=== PATIENT | male | born 1955 | race Caucasian/White ===

== ENCOUNTER 2021-08-31 14:13 | Inpatient (IN) | payer OTHER, SELFPAY ==
[2021-08-31] VITALS (16 sets, daily range): BP systolic 119–167; BP diastolic 83–124; PULSE 85–133; RESP 16–98; TEMP 36.5–38.3; O2SAT 20–98; BMI 25.7; BMI 25.3
--- NOTE | 2021-08-31 14:39 | EKG12_ITS ---
Test Reason : SYNCOPE Blood Pressure : / mmHG Vent. Rate : 134 BPM Atrial Rate : 214 BPM P-R Int : 000 ms QRS Dur : 098 ms QT Int : 278 ms P-R-T Axes : 000 052 -18 degrees QTc Int : 415 ms Atrial fibrillation with premature ventricular or aberrantly conducted complexes Abnormal ECG Confirmed by TJ VELOZ, NIK ([id number]), videotape editor JM REYES ([id number]) on 09/01/2021 12:53:31 PM Referred By: BETTINA Confirmed By:NIK SPENCER MD
--- NOTE | 2021-08-31 14:40 | EDS_ITS ---
HPI History of Present Illness Chief Complaint: Syncope Informant: patient and spouse/S.O. Narrative Narrative: Patient presents after syncopal episode at home.-year-old male. He had been sitting in a 0 gravity chair for about an hour out in the heat. He got up. He states he must of fallen. He woke up on the ground. He went in to clean himself up. His encouraged him to come in. He does not recall chest pain or palpitations. He really feels at his baseline now. This patient had craniotomy back at the end of June for benign meningioma. However, he has been slowly recovering. He initially had very severe headaches but those have gotten much better. He used to take Percocet [id number] but he now just takes it at night. He has been having some dizziness and lightheaded episodes for the last week or so. He has not noted palpitations or tachycardia. However, he was also diagnosed with atrial fibrillation this May. He was initially on Xarelto but that has been held ever since his surgery. He just takes baby aspirin and 25 of metoprolol at night for this. He also admits that he really has not been eating and drinking a lot. His appetite and taste is just not really recovered well after surgery. But overall he feels he is progressing and improving. His just talked to his neurosurgeon as he came in here. She requested CT scan. Past medical history: Meningioma, prostate cancer, atrial fibrillation Medications: Percocet, metoprolol, aspirin No known drug allergies Surgery meningioma excision end of June 2021 No alcohol, lives at home with [facility] Medical History Atrial fibrillation Allergy/AdvReac Type Severity Reaction Status Date / Time No Known Allergies Allergy Verified 08/31/21 14:16 Social History Smoking Status: Never smoker ROS ROS ED Constitutional Constitutional ED: Reports weight loss and other Details: Patient has had some weight loss due to decreased p.o. intake. ; Denies chills or fever(s) Eyes Eyes: Denies blurry vision, change in vision or diplopia ENT ENT ED: Denies rhinorrhea or sore throat Cardiovascular Cardiovascular: Reports other Details: Despite being in atrial fibrillation with a rate in the 120s through 140s he does not have palpitations. ; Denies chest pain, orthopnea, palpitations or racing heartbeat Respiratory/Chest Respiratory/Chest: Denies cough, dyspnea, dyspnea on exertion, orthopnea or sputum Gastrointestinal Gastrointestinal: Denies abdominal pain, nausea or vomiting Genitourinary Genitourinary ED: Denies dysuria Musculoskeletal Musculoskeletal: Denies back pain, myalgias or neck pain Integumentary Reports other Details: Laceration top of head Neurologic Neurologic: Reports headache(s) and other Details: Patient has mild headache. But is not really different than what he has been dealing with since surgery. ; Denies paresthesias or weakness Psychiatric Psychiatric: Denies anxiety or depression Endocrine Endocrinology: Denies polydipsia or polyuria Allergic/Immunologic Allergic/Immunologic ED: Denies urticaria EXAM Physical Exam Const Vital Signs: 08/31/21 14:14 08/31/21 14:21 Temperature 97.7 F L Temperature Source Temporal Pulse Rate 85 132 H Respiratory Rate 16 20 H Respiratory Effort Normal Respiratory Pattern Normal Blood Pressure 119/83 H 167/124 H Blood Pressure Mean 95 138 Pulse Ox 97 98 Oxygen Delivery Method Room Air Room Air Patient is actually wide-awake alert appropriate and gives a good history. Positive well nourished and well developed General Appearance ED: well developed and NAD HEENT HEENT Narrative: Patient has a very small abrasion above the left eyebrow. Nothing to suture. Bleeding is controlled with a Band-Aid. There is a 3 and half centimeter laceration to the top of his scalp. It is not bleeding. There is also a fluid collection toward the occipital area more on the right that has been there ever since his surgery. There is no sign of erythema or wound infection in the area. states this is about what its been looking like ever since surgery. Eyes PERRL and EOMs intact bilaterally Neck no lymphadenopathy and supple General: Negative for tenderness Chest Wall inspection of chest normal Resp normal respiratory effort and clear to auscultation bilaterally Cardio Negative for regular rate or regular rhythm Rate: tachycardic and other Other Details: Has atrial fibrillation on the monitor and with auscultation Rhythm: abnormal rhythm GI normal to inspection, nondistended, normoactive bowel sounds and non-tender Palpation: soft Back/Spine no CVA tenderness Extremity Extremity Narrative: Very slight abrasion on the anterior portion of her right knee. No pain with motion or palpation Neuro oriented x3 and CN's II-XII intact bilaterally Sensorium / Orientation: alert; Negative for orientation impaired, lethargic or stuporous Motor Exam: strength 5/5 throughout Psych mental status grossly normal Skin Skin Narrative: See above MDM MDM EKG Initial EKG: Comments: EKG done for tachycardia read by me shows atrial fibrillation with overall rate of 134. No ventricular beats noted. No acute ST elevation or depression.. QRS duration and QTc normal. Discharge Plan Triage Chief Complaint: Syncope ED Provider: Akhil Alan Dx/Rx/DC Orders Primary Care Provider: Jeff Meyer
[2021-08-31] MEDS: 0.9% Normal Saline 1,000 ML 1000 ML IV (14:42)
[2021-08-31] MEDS: Metoprolol Tartrate 5 MG/5 ML Vial IV ×4 (14:47→22:51)
[2021-08-31 14:48] LABS: Absolute Lymphocyte Count 1.12 X10^3/uL (0.83-4.51); Absolute Neutrophil Count 10.7 X10^3/uL (2.0-7.7); Basophil# 0.04 X10^3/uL; Basophil% 0.3 % (0-1); Eosinophil# 0.02 X10^3/uL; Eosinophils% 0.2 % (0-5); Hematocrit 43.5 % (40-54); Hemoglobin 14.8 g/dL (13.0-16.5); Lymphocyte # 1.12 X10^3/ul (0.83-4.51); Lymphocyte % 8.8 % (19-41); Mean Corpuscular Volume 88.1 fL (80-94); Mean Platelet Vol. 9.5 fl (6.2-12.0); Monocyte# 0.76 X10^3/uL; NRBC Flagged by Analyzer 0 % (0-5); Neutrophil # 10.71 X10^3/uL (2.7-7.7); Neutrophil % 84.2 % (47-70); Platelet Count 231 K/mm3 (150-450); RBC Distribution Width CV 13.1 % (11.6-14.6); RBC Distribution Width SD 42.1 fl (35.1-43.9); Red Blood Count 4.94 M/mm3 (4.6-6.2); White Blood Count 12.7 K/mm3 (4.4-11.0)
--- NOTE | 2021-08-31 15:09 | CT_ITS ---
STUDY: CT BRAIN WITHOUT CONTRAST REASON FOR EXAM: Male, 66 years old. Resent surgery for tumor removal. History of trauma. RADIATION DOSAGE (If Supplied By Facility): CTDIvol = ( 44.99 ) mGy, DLP = ( 880.47 ) mGycm TECHNIQUE: Transaxial CT imaging of the brain was performed without administration of intravenous contrast material. Individualized dose optimization techniques were used for this CT. COMPARISON: No relevant priors. FINDINGS: The patient is status post right occipital craniotomy. There is evidence of a 4.7 cm x 6.3 cm fluid collection overlying the soft tissues suggestive of postoperative seroma. There is a 1.4 cm hyperdense nodule overlying the skull overlying the posterior aspect of the left occipital bone. Normal size ventricles and extra-axial spaces for the patient''s age. Normal white matter tracts of the cerebral hemispheres. Normal basal ganglia and thalami. Normal brainstem. Focal encephalomalacia in the right cerebellar hemisphere in keeping with history of recent surgery. There is no intracranial hemorrhage. There are no findings of an acute ischemic infarction. Normal visualized paranasal sinuses. CT/Brain/Head without Contrast IMPRESSION: Status post right occipital craniotomy with findings suggestive of overlying postoperative seroma. Focal area encephalomalacia in the right cerebellar hemisphere laterally in keeping with prior surgical intervention. Electronically Signed: Nino Detnon MD at 15:20 EDT ,
--- NOTE | 2021-08-31 15:11 | RAD_ITS ---
STUDY: X-RAY CHEST REASON FOR EXAM: Male, 66 years old. Trauma TECHNIQUE: Single AP portable view of the chest. COMPARISON: None. FINDINGS: EKG electrodes are seen. The lungs are clear and expanded. There is no demonstrated pleural abnormality. There is borderline cardiomegaly. Normal mediastinum and freddy. Normal visualized pulmonary arteries. Normal visualized aortic arch and descending thoracic aorta. Normal visualized thoracic spine. Normal visualized ribs, clavicles, and shoulders. There is no demonstrated abnormality of the visualized soft tissue structures of the upper abdomen. RAD/Chest 1 View (Portable) IMPRESSION: Borderline cardiomegaly. Electronically Signed: Nino Denton MD at 15:30 EDT ,
[2021-08-31 15:16] LABS: Anion Gap 8 (5-15); BUN 12 mg/dL (7-18); BUN/Creat Ratio 13.4 RATIO (10-20); Calcium,Total 9.6 mg/dL (8.5-10.1); Chloride 100 mmol/L (98-107); EST Glomerular Filtration Rate 90 mL/min (>60); Est Glom Filt Rate - Afr Amer 109 mL/min (>60); Estimated Creatinine Clearance 88.31 ml/min; Glucose 147 mg/dL (74-106); Potassium 4.3 mmol/L (3.5-5.1); Sodium Level 135 mmol/L (136-145); Troponin-I HS 10 pg/mL (3.0-78.0)
[2021-08-31] MEDS: Acetaminophen 325 MG Tablet 650 MG PO ×2 (16:43→20:10)
[2021-08-31] MEDS: Metoprolol Tartrate 25 MG Tablet PO (17:05)
[2021-08-31] MEDS: Metoprolol(XL)Succ 50 MG Tablet PO ×2 (18:18→19:50)
--- NOTE | 2021-08-31 18:22 | PCM.HP.STD ---
Documented by User: Khushi Schulz NP, [employer] MACHINE [employer]ER-C 08/31/21 18:35 HPI - General HPI Narrative BASIM CAMPUZANO, is a 66 M who presents to the emergency room due to syncope. Patient was laying in a chair outside and upon standing, passed out. He states he did not have any symptoms prior to syncope episode. He is unsure how long he lost consciousness for. He states he woke up lying on the ground and had blood on his face. He states he was able to get himself in the house to clean up his face. His got home approximately 30 minutes later and found him in the bathroom sitting down. He denies any ongoing symptoms or complaints. He states he had excision of a fairly large meningioma at the end of June and has had some dizziness upon standing since his surgery as well as headaches however these have improved. He denies chest pain, shortness of breath, palpitations. Denies fever, chills. He has chronic atrial fibrillation and is not on anticoagulation due to recent surgery. He denies other past medical history. [facility] Medical History (Updated 08/31/21 @ 18:29 by Khushi Schulz NP, [employer] MACHINE [employer]ER-C) Atrial fibrillation Benign meningioma Pre-diabetes Home Medications acetaminophen [Tylenol] 650 mg PO Q6H PRN 08/31/21 [History Last Taken 08/31/21] aspirin 81 mg PO DAILY 08/31/21 [History Last Taken 08/30/21] metoprolol tartrate 25 mg PO DAILY 08/31/21 [History Last Taken 08/30/21] oxycodone-acetaminophen [Percocet] 1 tab PO Q6H PRN 08/31/21 [History Last Taken 08/30/21] Allergy/AdvReac Type Severity Reaction Status Date / Time No Known Allergies Allergy Verified 08/31/21 14:16 Family History (Updated 08/31/21 @ 18:27 by Khushi Schulz NP, [employer] MACHINE [employer]C) Mother Diabetes Father CAD (coronary artery disease) Surgical History History of total right knee replacement Hx of prostatectomy Meningioma determined by biopsy of brain Social History (Updated 08/31/21 @ 18:29 by Khushi Schulz NP, [employer] MACHINE [employer]EDER-C) household members: spouse Smoking Status: Never smoker alcohol intake: never substance use type: does not use ROS Constitutional Constitutional: Denies change in weight, chills, fatigue, fever(s) or weakness Cardiovascular Cardiovascular: Reports syncope; Denies chest pain, edema, lightheadedness or palpitations Respiratory/Chest Respiratory/Chest: Denies cough, dyspnea, productive cough, shortness of breath at rest, shortness of breath with exertion or wheezing Gastrointestinal Gastrointestinal: Denies abdominal pain, constipation, diarrhea, nausea or vomiting Genitourinary Genitourinary: Denies burning urination, difficulty urinating, dysuria, hematuria, urinary frequency, urinary incontinence or urinary urgency Musculoskeletal Musculoskeletal: Denies back pain, joint pain or muscle weakness Integumentary Integumentary: Denies erythema, lesions, rash or wounds Neurologic Neurologic: Denies abnormal speech, confusion, dizziness, focal weakness, numbness, paresthesias, seizure-like activity or syncope Psychiatric Psychiatric: Denies anxiety or depression Hematologic/Lymphatic Hematologic/Lymphatic: Denies anemia, easy bleeding or easy bruising Allergic/Immunologic Allergic/Immunologic: Denies hives or asthma Vital Signs Vital Signs Vital Signs: 08/31/21 14:14 08/31/21 14:21 08/31/21 14:51 Temperature 97.7 F L Temperature Source Temporal Pulse Rate 85 132 H 107 H Respiratory Rate 16 20 H 16 Respiratory Effort Normal Respiratory Pattern Normal Blood Pressure 119/83 H 167/124 H 120/97 H Blood Pressure Mean 95 138 104 Pulse Ox 97 98 97 Oxygen Delivery Method Room Air Room Air Room Air 08/31/21 14:58 08/31/21 15:19 08/31/21 15:40 Temperature Temperature Source Pulse Rate 98 98 105 H Respiratory Rate 18 20 H Respiratory Effort Respiratory Pattern Blood Pressure 134/104 H 132/98 H 131/89 H Blood Pressure Mean 114 109 103 Pulse Ox 98 96 Oxygen Delivery Method Room Air Room Air 08/31/21 16:19 08/31/21 16:38 08/31/21 17:04 Temperature Temperature Source Pulse Rate 117 H 110 H 107 H Respiratory Rate 98 H 20 H 20 H Respiratory Effort Respiratory Pattern Blood Pressure 136/119 H 144/118 H 139/104 H Blood Pressure Mean 124 126 115 Pulse Ox 20 98 96 Oxygen Delivery Method Room Air Room Air 08/31/21 17:37 08/31/21 18:14 08/31/21 18:15 Temperature 99.7 F H Temperature Source Oral Pulse Rate 114 H 115 H 121 H Respiratory Rate 20 H 20 H 20 H Respiratory Effort Respiratory Pattern Blood Pressure 134/95 H 128/106 H 136/110 H Blood Pressure Mean 108 113 118 Pulse Ox 98 96 96 Oxygen Delivery Method Room Air Room Air Room Air Weight Weight: 185 lb Body Mass Index (BMI) 25.7 Physical Exam Const alert and oriented x3 Orientation / Consciousness: awake, oriented to person, oriented to place and oriented to time HEENT normocephalic and moist oral mucous membranes Eyes PERRL, EOMs intact bilaterally and conjunctivae normal Neck no lymphadenopathy Resp normal respiratory effort and clear to auscultation bilaterally Cardio Cardio Narrative: a.fib with RVR Peripheral Pulses: pulses 2+ throughout GI normal to inspection, nondistended, normoactive bowel sounds, non-tender and non-distended Extremity normal to inspection Skin no rashes or lesions noted Skin Narrative: left forehead laceration Lesions: no lesions Rashes: no rashes Trauma: no lacerations or abrasions Neuro CN's II-XII intact bilaterally, no focal motor deficits, no sensory deficits noted and deep tendon reflexes 2+ bilaterally Psych mental status grossly normal and affect normal Results Lab / Micro Data Result Diagrams: 08/31/21 14:43 08/31/21 14:43 Labs: Laboratory Results - last 24 hr 08/31/21 14:43: WBC 12.7 H, RBC 4.94, Hgb 14.8, Hct 43.5, MCV 88.1, MCH 30.0, MCHC 34.0, RDW Std Deviation 42.1, RDW Coeff of Frida 13.1, Plt Count 231, MPV 9.5, Immature Gran % (Auto) 0.500, Neut % (Auto) 84.2 H, Lymph % (Auto) 8.8 L, Loup % (Auto) 6.0, Eos % (Auto) 0.2, Baso % (Auto) 0.3, Absolute Neuts (auto) 10.7 H, Absolute Lymphs (auto) 1.12, Nucleated RBC % 0 08/31/21 14:43: Sodium 135 L, Potassium 4.3, Chloride 100, Carbon Dioxide 27.0, Anion Gap 8, BUN 12, Creatinine 0.90, Estim Creat Clear Calc 88.31, Est GFR (MDRD) Af Amer 109, Est GFR (MDRD) Non-Af 90, BUN/Creatinine Ratio 13.4, Glucose 147 H, Calcium 9.6, Troponin I High Sens [address] 08/31/21 15:09 IMPRESSION: Status post right occipital craniotomy with findings suggestive of overlying postoperative seroma. Focal area encephalomalacia in the right cerebellar hemisphere laterally in keeping with prior surgical intervention. Electronically Signed: Nino Denton MD at 15:20 EDT , Chest X-Ray 08/31/21 15:11 IMPRESSION: Borderline cardiomegaly. Electronically Signed: Nino Denton MD at 15:30 EDT , Assessment & Plan Assessment/Plan (1) Atrial fibrillation with RVR: PLAN: 1. Uncontrolled a.fib-not on anticoagulation due to recent brain hemangioma excision. Increase metoprolol succinate to 50 mg daily. Monitor telemetry. Patient's primary burglar alarm installer recommended overnight observation. 2. Syncope-brain CT with stable postoperative changes. Possibly related to #1. Check orthostatic vitals. Troponin negative. 3. Benign brain hemangioma excision June 2021-continue outpatient follow-up. 4. History of prostate cancer-reports ongoing elevated PSA. Continue outpatient surveillance. DVT prophylaxis- not indicated. This patient was seen by CHACHA Cox under the supervision of Dr. Curtis. Time spent examining patient, reviewing data and subsequent management of care: 18 minutes Documented by User: Dr. Daryl Curtis DO 08/31/21 19:02 HPI - General General Date of Admission: 08/31/21 [facility] Medical History (Updated 08/31/21 @ 18:29 by Khushi Scuhlz NP, [employer] MACHINE [employer]ER-C) Atrial fibrillation Benign meningioma Pre-diabetes Home Medications acetaminophen [Tylenol] 650 mg PO Q6H PRN 08/31/21 [History Last Taken 08/31/21] aspirin 81 mg PO DAILY 08/31/21 [History Last Taken 08/30/21] metoprolol tartrate 25 mg PO DAILY 08/31/21 [History Last Taken 08/30/21] oxycodone-acetaminophen [Percocet] 1 tab PO Q6H PRN 08/31/21 [History Last Taken 08/30/21] Allergy/AdvReac Type Severity Reaction Status Date / Time No Known Allergies Allergy Verified 08/31/21 14:16 Family History (Updated 08/31/21 @ 18:27 by Khushi Schulz NP, FISH MACHINE FEEDER-C) Mother Diabetes Father CAD (coronary artery disease) Surgical History History of total right knee replacement Hx of prostatectomy Meningioma determined by biopsy of brain Social History (Updated 08/31/21 @ 18:29 by Khushi Schulz NP, FISH MACHINE FEEDER-C) household members: spouse Smoking Status: Never smoker alcohol intake: never substance use type: does not use Results Lab / Micro Data Result Diagrams: 08/31/21 14:43 08/31/21 14:43 Charges/Coding Addendum Addendum: She was seen and examined today independently of Khushi Schulz, he came to the ER today at [facility] after sustaining a syncopal episode at home and hitting the back of his head. Patient states he was standing up from a seated position, he had been outside this afternoon in the heat and the next thing he knew he was on the ground. Patient was able to get himself up to go into his house, he tried to wipe the blood off in the bathroom but became lightheaded again and sat down on the bathroom floor. Patient has had a history of atrial fibrillation since May of this year, coincidentally while he underwent a work-up for an elevated PSA, he was noted to have a meningioma which was then removed in June of this year. Patient has been on rate control medication for his atrial for but he has not been on any anticoagulation except for an 81 mg baby aspirin which she takes daily-I questioned him about this and he stated that he has been taking this for quite some time and the neurosurgeon elected to keep him on this baby aspirin. Work-up in the emergency room included a CT of the brain which showed right occipital changes indicating a postoperative seroma, there is an area of focal encephalomalacia secondary to his known brain surgery recently. Patient was noted to have atrial fib with rapid ventricular response in the emergency room today, he was given 2 doses of IV metoprolol with some decrease in his heart rate. His burglar alarm installer was contacted and requested that the patient be placed in observation status overnight here to monitor his heart rate and adjust his rate limiting medication, patient did not want to go to [facility] and so the hospitalist service was called for admission. On examination he appeared in good health and spirits. Vital signs as documented. Skin warm and dry and without overt rashes, there was a well approximated laceration to the left occipital area with some mild edema in the area noted. Neck without JVD, neck was supple, trachea midline, thyroid was normal. Lungs clear bilaterally, normal air movement was noted. Heart exam notable for irregular rhythm, normal sounds and absence of murmurs, rubs or gallops. Abdomen unremarkable and without evidence of organomegaly, masses, or abdominal aortic enlargement. Bowel sounds are present, abdomen is not distended. Extremities nonedematous, no cyanosis was noted, no clubbing was noted. Neuro: Cranial nerves II through XII are grossly intact, no focal motor deficits were noted, sensation to light touch and pinprick intact, motor exam 5/5 throughout. Psych: Patient is alert and oriented x3, he does not appear anxious or depressed, he does not appear agitated. Labs obtained showed a slightly elevated white blood cell count at 12.7, patient's sodium was 135 and glucose was 147. Impression: #1 syncope-probably vasovagal in nature, patient will be placed in observation status on PCU, he will be monitored on telemetry, rate limiting medications will be given, patient's metoprolol succinate will be increased to 50 mg daily for rate control. I do not believe the patient needs any further studies such as an echocardiogram or repeat EKGs or cardiac enzyme monitoring. #2 permanent atrial fibrillation-uncontrolled at this time, again patient will be placed in observation status on PCU and rate limiting medications will be given to the patient, he may need further titration of his metoprolol succinate. #3 brain seroma secondary to recent meningioma removal-patient states that he follows up with his neurosurgeon and he has a seroma which is going to be observed at this time to see if it resolves without further surgery. #4 occipital laceration due to fall-there is no signs of any bleeding or severe ecchymosis in the area #5 history of prostate cancer-patient follows up with outpatient urology Again I have elected to take the patient off 81 mg aspirin which he takes daily-I explained this to him and he was in agreement with stopping the aspirin. I have reviewed Khushi Schulz's history and physical including her medical assessment and plan of care and endorse it with the above additions. Total clinical time spent by myself addressing the patient's medical issues, reviewing the patient's medical record, and collaborating with the patient's caregivers: 52 minutes. Visit Charges OBSV E&M: [id number] Initial observation care L3
[2021-08-31] MEDS: Ondansetron 4 MG/2 ML Vial IV (18:26)
[2021-08-31] MEDS: oxyCODONE 5 MG Tablet PO (20:10)
--- NOTE | 2021-08-31 22:30 | PCM.HOSP.N ---
Hospitalist Note Notified by Keiry BLACK that patient was continuing to have heart rates in the 110 to 120s despite receiving dose of metoprolol succinate 50 mg p.o. Metoprolol 5 mg IV every 6 hours as needed ordered. Discussed with Dr. Abrams who was agreeable to plan of care.
[2021-08-31] MEDS: Calcium Carbonate 500 MG Tablet 1000 MG PO (22:47)
[2021-08-31] MEDS: 0.9% Saline Lock 10 ML Syringe IV (23:00)
[2021-09-01] VITALS (17 sets, daily range): BP systolic 117–146; BP diastolic 53–106; PULSE 56–115; RESP 16–18; TEMP 36–37.2; O2SAT 91–97
[2021-09-01] MEDS: oxyCODONE 5 MG Tablet PO ×3 (00:20→09:48)
[2021-09-01] MEDS: Acetaminophen 325 MG Tablet 650 MG PO ×2 (02:22→09:48)
[2021-09-01 08:11] LABS: AST(SGOT) 15 U/L (15-37); Alanine Aminotransfer ALT/SGPT 30 U/L (16-61); Albumin, Serum 3.1 g/dL (3.2-5.0); Alkaline Phosphatase 47 U/L (45-117); Anion Gap 8 (5-15); BUN 9 mg/dL (7-18); BUN/Creat Ratio 12.8 RATIO (10-20); Calcium,Total 8.8 mg/dL (8.5-10.1); Chloride 99 mmol/L (98-107); EST Glomerular Filtration Rate 120 mL/min (>60); Est Glom Filt Rate - Afr Amer 146 mL/min (>60); Estimated Creatinine Clearance 113.55 ml/min; Glucose 136 mg/dL (74-106); Potassium 4.3 mmol/L (3.5-5.1); Protein, Total 6.1 g/dL (6.4-8.2); Sodium Level 132 mmol/L (136-145)
[2021-09-01 08:17] LABS: Absolute Lymphocyte Count 1.52 X10^3/uL (0.83-4.51); Absolute Neutrophil Count 9.4 X10^3/uL (2.0-7.7); Basophil# 0.02 X10^3/uL; Basophil% 0.2 % (0-1); Eosinophil# 0.01 X10^3/uL; Eosinophils% 0.1 % (0-5); Hematocrit 38.1 % (40-54); Hemoglobin 13.2 g/dL (13.0-16.5); Lymphocyte # 1.52 X10^3/ul (0.83-4.51); Lymphocyte % 12.6 % (19-41); Mean Corp Hgb Conc 34.6 g/dL (32-36); Mean Corpuscular Hgb 30.1 pg (27.0-32.0); Mean Platelet Vol. 9.7 fl (6.2-12.0); Monocyte# 1.05 X10^3/uL; Monocyte% 8.7 % (0-10); NRBC Flagged by Analyzer 0 % (0-5); Neutrophil # 9.44 X10^3/uL (2.7-7.7); Neutrophil % 77.9 % (47-70); Platelet Count 238 K/mm3 (150-450); RBC Distribution Width CV 13.1 % (11.6-14.6); RBC Distribution Width SD 41.5 fl (35.1-43.9); Red Blood Count 4.38 M/mm3 (4.6-6.2); White Blood Count 12.1 K/mm3 (4.4-11.0)
[2021-09-01] MEDS: Metoprolol(XL)Succ 50 MG Tablet PO (09:01)
[2021-09-01] MEDS: Ondansetron 4 MG/2 ML Vial IV (09:01)
[2021-09-01] MEDS: 0.9% Saline Lock 10 ML Syringe IV ×2 (09:01→13:39)
[2021-09-01] MEDS: 0.9% Normal Saline 1,000 ML 500 ML IV (09:50)
[2021-09-01 09:51] LABS: Hemoglobin A1c 6.1 % (3.8-5.6)
[2021-09-01 09:57] LABS: Mucous, Urine 0 SEEN /hpf (<or=2+); Red Blood Cells-Urine 0 SEEN /hpf (0-5); Squamous Epithelial Cells - UA 0 SEEN /hpf (0-5); White Blood Cells 0 SEEN /hpf (0-5)
[2021-09-01 10:03] LABS: Color, Urine Yellow (Yellow); Glucose, Dipstick Normal (Normal); Ketone-Dipstick Negative (Negative); Leukocyte Esterase-Dipstick Negative /ul (Negative); Nitrite-Dipstick Negative (Negative); Occult Blood-Urine Negative /ul (Negative); Protein-Dipstick Negative (Negative); Urine Bilirubin Dipstick Negative (Negative); Urine Urobilinogen Normal (Normal)
[2021-09-01 10:14] LABS: Bacteria 1+ /hpf (None Seen); Urine Clarity Clear (Clear)
--- NOTE | 2021-09-01 11:02 | CT_ITS ---
STUDY: CTA CHEST REASON FOR EXAM: Male, 66 years old. Syncope, r/o PE RADIATION DOSAGE (If Supplied By Facility): CTDIvol = ( 25.48 ) mGy, DLP = ( 471.62 ) mGycm TECHNIQUE: The examination was performed with the intravenous administration of IV 100mL [id number]-[id number]. Post-processing of the angiographic images was performed, with multiplanar reformation and 3D reconstruction. Individualized dose optimization techniques were used for this CT. COMPARISON: Comparison is made with prior chest radiograph dated 08/31/2021. FINDINGS: No pulmonary emboli are seen. Normal thoracic aorta and visualized great vessels. There is no demonstrated aortic dissection. Mild coronary artery calcification. Normal mediastinum. Normal hilar regions. Normal visualized trachea and bronchi. The lungs are well expanded. Minimal increased markings at the right lung base suggestive of linear atelectasis. Normal pleura. Normal chest wall structures. There are degenerative changes of thoracic spine. There is fluid distention of the esophagus. CT/CTA Chest W/WO Contrast IMPRESSION: No evidence of pulmonary emboli. Findings suggest mild linear atelectasis at the right lung base. Electronically Signed: Nino Denton MD at 12:11 EDT ,
--- NOTE | 2021-09-01 11:02 | MRI_ITS ---
EXAM: MR HEAD WITHOUT AND WITH INTRAVENOUS CONTRAST CLINICAL INDICATION: syncope, recent brain surgery TECHNIQUE: Multiplanar and multisequence MR images of the brain were obtained without and with intravenous contrast. This report was created using [employer] technology. CONTRAST: IV 16ML DOTAREM COMPARISON: ct 08.31.21 FINDINGS: BRAIN AND EXTRA-AXIAL SPACES: Chronic involutional changes of the brain. Focal area encephalomalacia in the right cerebellar hemisphere is stable since the recent ct scan. No intra- or extra-axial hemorrhage. No evidence of acute infarct. No intracranial mass or mass effect. There is preservation of the prieto/white matter interface. Ventricles are appropriate for age. No hydrocephalus. Basal cisterns are patent. SELLA: Unremarkable. Normal sella turcica, pituitary gland, infundibular stalk, optic chiasm and hypothalamus. AUDITORY SYSTEM: Unremarkable. The internal auditory canals are patent. BONES/JOINTS: Status post right occipital craniotomy with metal plate in place causing artifact. There is a fluid collection below the craniotomy site in the soft tissue suggestive of overlying postoperative seroma measuring 64 x 37 x 63mm. There are no air locules to suggest an abscess. However, this is not entirely excluded given the time frame of the surgery. No discrete lytic or blastic abnormalities. SINUSES: Unremarkable as visualized. Clear. MASTOID AIR CELLS: Unremarkable as visualized. Clear. ORBITS: Unremarkable as visualized. Both globes, extraocular muscles, optic nerves and retrobulbar fat appear unremarkable. VASCULATURE: Unremarkable as visualized. Normal flow voids in the major intracranial circulation. MRI/Brain W/WO Contrast IMPRESSION: 1. Status post right occipital craniotomy with metal plate in place causing artifact. There is a fluid collection below the craniotomy site in the soft tissue suggestive of overlying postoperative seroma measuring 64 x 37 x 63mm. There are no air locules to suggest an abscess. However, this is not entirely excluded given the time frame of the surgery. 2. Chronic involutional changes of the brain. Electronically Signed: Jeronimo Elliott MD at 15:55 EDT ,
--- NOTE | 2021-09-01 11:05 | PCM.PN.HOSP ---
Documented by User: Khushi Schulz NP, PROTECTIVE OFFICER-C 09/01/21 11:23 Subjective Subjective Patient seen and examined. Episode of emesis this morning. Denies further fever, chills during admission. Does state he had a brief episode of intermittent fever, chills over the past week. Denies recent illness including cough, URI symptoms, urinary symptoms. Objective Data Objective Data Vital Signs: Vital Signs Temp Pulse Resp BP Pulse Ox 97.1 F L 91 18 146/106 H 96 09/01/21 08:51 09/01/21 10:25 09/01/21 08:51 09/01/21 10:25 09/01/21 08:51 Oxygen Delivery Method Room Air Weight: 181 lb 14.102 oz Body Mass Index (BMI) 25.3 Intake & Output: Intake and Output for Last 24 Hours 08/30/21 08/31/21 09/01/21 23:59 23:59 23:59 Intake Total 1000 / 1000 Output Total 700 / 700 Balance 1000 / 750 -700 / -700 Lab / Micro Data Result Diagrams: 09/01/21 07:35 09/01/21 07:35 Labs: Laboratory Results - last 24 hr 08/31/21 14:43: WBC 12.7 H, RBC 4.94, Hgb 14.8, Hct 43.5, MCV 88.1, MCH 30.0, MCHC 34.0, RDW Std Deviation 42.1, RDW Coeff of Frida 13.1, Plt Count 231, MPV 9.5, Immature Gran % (Auto) 0.500, Neut % (Auto) 84.2 H, Lymph % (Auto) 8.8 L, [place] % (Auto) 6.0, Eos % (Auto) 0.2, Baso % (Auto) 0.3, Absolute Neuts (auto) 10.7 H, Absolute Lymphs (auto) 1.12, Nucleated RBC % 0 08/31/21 14:43: Sodium 135 L, Potassium 4.3, Chloride 100, Carbon Dioxide 27.0, Anion Gap 8, BUN 12, Creatinine 0.90, Estim Creat Clear Calc 88.31, Est GFR (MDRD) Af Amer 109, Est GFR (MDRD) Non-Af 90, BUN/Creatinine Ratio 13.4, Glucose 147 H, Calcium 9.6, Troponin I High Sens 10 09/01/21 07:35: WBC 12.1 H, RBC 4.38 L, Hgb 13.2, Hct 38.1 L, MCV 87.0, MCH 30.1, MCHC 34.6, RDW Std Deviation 41.5, RDW Coeff of Frida 13.1, Plt Count 238, MPV 9.7, Immature Gran % (Auto) 0.500, Neut % (Auto) 77.9 H, Lymph % (Auto) 12.6 L, [place] % (Auto) 8.7, Eos % (Auto) 0.1, Baso % (Auto) 0.2, Absolute Neuts (auto) 9.4 H, Absolute Lymphs (auto) 1.52, Nucleated RBC % 0 09/01/21 07:35: Sodium 132 L, Potassium 4.3, Chloride 99, Carbon Dioxide 25.0, Anion Gap 8, BUN 9, Creatinine 0.70, Estim Creat Clear Calc 113.55, Est GFR (MDRD) Af Amer 146, Est GFR (MDRD) Non-Af 120, BUN/Creatinine Ratio 12.8, Glucose 136 H, Calcium 8.8, Total Bilirubin 0.80, AST 15, ALT 30, Alkaline Phosphatase 47, Total Protein 6.1 L, Albumin 3.1 L, Globulin 3.0, Albumin/Globulin Ratio 1.0 09/01/21 07:35: Hemoglobin A1c 6.1 H 09/01/21 09:50: Urine Color Yellow, Urine Clarity Clear, Urine pH 6.0, Ur Specific [place] 1.020, Urine Protein Negative, Urine Glucose (UA) Normal, Urine Ketones Negative, Urine Occult Blood Negative, Urine Nitrite Negative, Urine Bilirubin Negative, Urine Urobilinogen Normal, Ur Leukocyte Esterase Negative, Urine RBC 0 SEEN, Urine WBC 0 SEEN, Ur Squamous Epith Cells 0 SEEN, Urine Bacteria 1+, Urine Mucus 0 SEEN Radiography Diagnostic Testing: Radiology Impression Brain CT 08/31/21 15:09 IMPRESSION: Status post right occipital craniotomy with findings suggestive of overlying postoperative seroma. Focal area encephalomalacia in the right cerebellar hemisphere laterally in keeping with prior surgical intervention. Electronically Signed: Nino Denton MD at 15:20 EDT , Chest X-Ray 08/31/21 15:11 IMPRESSION: Borderline cardiomegaly. Electronically Signed: Nino Denton MD at 15:30 EDT , Physical Exam Const alert, oriented x3 and no apparent distress Orientation / Consciousness: awake, oriented to person, oriented to place and oriented to time HEENT normocephalic and moist oral mucous membranes Eyes PERRL, EOMs intact bilaterally and conjunctivae normal Neck no lymphadenopathy Resp normal respiratory effort and clear to auscultation bilaterally Cardio no murmurs Cardio Narrative: A. fib, mildly tachycardic Peripheral Pulses: pulses 2+ throughout GI normal to inspection, nondistended, normoactive bowel sounds, non-tender and non-distended Extremity normal to inspection Skin no rashes or lesions noted Lesions: no lesions Rashes: no rashes Trauma: no lacerations or abrasions Neuro CN's II-XII intact bilaterally, no focal motor deficits, no sensory deficits noted and deep tendon reflexes 2+ bilaterally Psych mental status grossly normal and affect normal Assessment & Plan Assessment/Plan (1) Syncope: PLAN: 1. Sycope-unclear etiology. Low-grade fever/leukocytosis with episode of emesis. Will begin 1 L IV fluids. Blood cultures obtained. Obtain UA. Chest x-ray unremarkable. With recent neurosurgery, obtain MRI of brain. Check orthostatic vitals. 2. Uncontrolled a.fib-not on anticoagulation due to recent brain hemangioma excision. Increase metoprolol succinate to 75 mg daily, previously on 25 mg. Remains mildly tachycardic on 50 mg. Monitor telemetry. Patient's primary drawer liner recommended overnight observation. 3. Benign brain hemangioma excision June 2021-continue outpatient follow-up. 4. History of prostate cancer-reports ongoing elevated PSA. Continue outpatient surveillance. 5. Prediabetes-hemoglobin A1c 6.1%. Recommend dietary modifications and further outpatient follow-up. DVT prophylaxis- SCDs This patient was seen by CHACHA Cox under the supervision of Dr. Bender. Documented by User: Dr. Mary Ellen Bender DO 09/01/21 15:02 Subjective Subjective This patient was seen in conjunction with Khushi Schulz NP. The following represents my independent history and physical examination. Please see below for addendum the above. Patient had a T-max overnight of 100.9 but has been otherwise afebrile. White count remains slightly elevated. Patient had one episode of emesis in the emergency department and then he did have another emesis this morning. P.o. intake has been poor. Per his report he did well after surgery initially for about 5 weeks but then has been declining somewhat since that point time. He has been in close contact with his neurosurgeon who he pleased with and she has been very receptive to his issues. His headaches had improved but his headache has increased since he hit his head yesterday. He indicates he has been having some dizziness and when pinpointed it sounds like this is more lightheadedness and unstable gait since the surgery. He denies any nelsy vertigo. Objective Data Lab / Micro Data Result Diagrams: 09/01/21 07:35 09/01/21 07:35 Physical Exam Const alert, oriented x3 and no apparent distress Constitutional Narrative: Upper middle-aged white male lying in bed but inclined to the bed upon my arrival, appears as if he is not feeling well but nontoxic Exam Limitations: no limitations HEENT moist oral mucous membranes HEENT Narrative: Laceration above the left eye with ecchymosis surrounding the area mild tenderness, fluctuant large softball size area in the posterior aspect of the right occipital area of the cranium-no erythema or tenderness and no drainage from his incision sites, Mallampati 2, no thrush, dentition is good Head and Scalp: normocephalic Eyes PERRL, EOMs intact bilaterally and conjunctivae normal Eyes Narrative: No scleral icterus Neck no lymphadenopathy, supple and no JVD Neck Narrative: Trachea midline, no thyroid enlargement Resp normal respiratory effort, no retractions, no use of accessory muscles and clear to auscultation bilaterally Auscultation: Negative for crackles, rales, rhonchi or wheezes Cardio regular rate, regular rhythm, S1 normal heart sound, S2 normal heart sound, no murmurs, no rub, no gallops, no clicks and no JVD GI normal to inspection, nondistended, normoactive bowel sounds, soft to palpation, non-tender and non-distended; Negative for hepatosplenomegaly Extremity no clubbing, cyanosis or edema Peripheral Pulses: Yes pulses 2+ throughout Skin no rashes or lesions noted, No no wounds, skin turgor normal, no jaundice, no petechiae and no mottling Skin Narrative: Wounds as noted above Neuro oriented x3, CN's II-XII intact bilaterally, moves all extremities, no focal motor deficits and no sensory deficits noted Sensorium / Orientation: awake and alert Speech: speech normal Motor Exam: strength 5/5 throughout Psych Psych Narrative: Affect is flattened mood seems to be somewhat depressed Assessment & Plan Assessment/Plan (1) Syncope: (2) Atrial fibrillation with RVR: (3) Leukocytosis: (4) Fever: (5) Nausea & vomiting: (6) Lightheadedness: (7) Hyponatremia: PLAN: Assessment: Syncope Fever Leukocytosis Nausea and vomiting Lightheadedness Hyponatremia A. fib with RVR Right sided brain meningioma-recent excision History of prostate cancer Insulin resistance with hemoglobin A1c of 6.1 Plan: -Patient still mildly tachycardic with A. fib and RVR on the 50 mg that we initiated -increase to 75 mg -Fever overnight with T-max 100.9 -Check UA -Check blood cultures -Chest x-ray without sign of infection -Check CTA of chest with syncope -Check MRI of brain-fluid collection noted on CT scan and with fever and white count elevation I think we need to better delineate that there is no cerebral infection with recent surgery -Depending on results of above could consider echocardiogram with ongoing A. fib -Check TSH in a.m. -Continue carb controlled diet -Antiemetics--> encouraged broth and Jell-O with clear liquids and advance as tolerated -We will hold on empiric antibiotics at this time Charges/Coding Visit Charges Inpatient E&M: 90477 [facility] Hosp L3
[2021-09-01] MEDS: Calcium Carbonate 500 MG Tablet 1000 MG PO (13:31)
[2021-09-01] MEDS: LORazepam 2 MG/ML Syringe 1 MG IV (13:39)
[2021-09-01] MEDS: Metoprolol(XL)Succ 25 MG Tablet PO (13:39)
[2021-09-02] VITALS (11 sets, daily range): BP systolic 135–147; BP diastolic 90–106; PULSE 81–104; RESP 14–18; TEMP 36.7–37.5; O2SAT 94–99
[2021-09-02] MEDS: Ondansetron 4 MG/2 ML Vial IV (03:18)
[2021-09-02] MEDS: Acetaminophen 325 MG Tablet 650 MG PO ×2 (03:19→16:57)
[2021-09-02] MEDS: oxyCODONE 5 MG Tablet PO ×2 (03:19→15:34)
[2021-09-02] MEDS: 0.9% Saline Lock 10 ML Syringe IV (03:19)
[2021-09-02 03:30] LABS: Bedside Glucose 122 mg/dL (74-106)
[2021-09-02 05:51] LABS: Absolute Lymphocyte Count 1.18 X10^3/uL (0.83-4.51); Absolute Neutrophil Count 8.8 X10^3/uL (2.0-7.7); Basophil# 0.03 X10^3/uL; Basophil% 0.3 % (0-1); Eosinophil# 0.01 X10^3/uL; Eosinophils% 0.1 % (0-5); Hematocrit 36.7 % (40-54); Lymphocyte # 1.18 X10^3/ul (0.83-4.51); Lymphocyte % 10.8 % (19-41); Mean Corp Hgb Conc 35.4 g/dL (32-36); Mean Corpuscular Hgb 30.1 pg (27.0-32.0); Monocyte# 0.86 X10^3/uL; Monocyte% 7.8 % (0-10); NRBC Flagged by Analyzer 0 % (0-5); Neutrophil # 8.83 X10^3/uL (2.7-7.7); Neutrophil % 80.5 % (47-70); Platelet Count 231 K/mm3 (150-450); RBC Distribution Width CV 12.8 % (11.6-14.6); RBC Distribution Width SD 38.9 fl (35.1-43.9); Red Blood Count 4.32 M/mm3 (4.6-6.2)
[2021-09-02 06:31] LABS: Anion Gap 7 (5-15); BUN 9 mg/dL (7-18); BUN/Creat Ratio 14.8 RATIO (10-20); Calcium,Total 8.6 mg/dL (8.5-10.1); Chloride 95 mmol/L (98-107); Creatinine, Serum 0.61 mg/dL (0.70-1.30); EST Glomerular Filtration Rate 142 mL/min (>60); Est Glom Filt Rate - Afr Amer 172 mL/min (>60); Glucose 134 mg/dL (74-106); Sodium Level 126 mmol/L (136-145)
--- NOTE | 2021-09-02 07:17 | NM_ITS ---
Gastric emptying study INDICATION: Nausea. TECHNIQUE: After the administration of 1.2 mCi of technetium 99m sulfur colloid in the medial orally, multiple sonographic images of the abdomen were obtained. FINDINGS: Normal uptake is seen within the stomach with passage through the duodenum into the small bowel. Next After 1 hour, there is 96% gastric retention which is elevated. T1 half is calculated to be 412 minutes which is markedly prolonged. NM/Gastric Emptying Study IMPRESSION: Delayed gastric emptying. Electronically Signed: David Adam MD at 11:35 EDT ,
[2021-09-02 08:12] LABS: Urine Sodium 125 mmol/L (Not Establ.)
[2021-09-02] MEDS: Metoprolol(XL)Succ 50 MG Tablet 75 MG PO (10:45)
--- NOTE | 2021-09-02 10:55 | CASEMGMT ---
SOFIA MERCEDES assessment: Face to Face with patient for initial transition planning/care coordination assessment. SOFIA MERCEDES introduced self and role at [facility], pt voices understanding and consents to assessment. Pt is sitting up in bed in no distress on room air. Pt is A/Ox4 and answers all questions appropriately. Care providers, pharmacy, and demographics verified/updated. Presentation: Pt c/o syncopal episode after getting up from chair-fall on patio w/ lacerations to top of head/above left eye-brain tumor removed about 40 days ago, having worsening episodes of dizziness Admitting dx: Afib, syncope PCP: Betsy Specialists: Gabbi neuro surgeon at [facility]; Merle cardio at [facility]; María, onc; Jose uro at [facility] Preferred [facility]: [facility] Insurance: [facility] Prescription Benefit: [facility] Living Will/HPOA: Pt has LW/HPOA and is aware that they are not on file at [facility]. Pt's , Georgia Emerson, is HPOA. LNOK: Georgia Emerson, /HPOA Living Arrangements: Pt lives with in 2 story home and states no concerns at home. Pt is independent with ADL's. Transportation: Pt drives self or drives and states no transportation concerns. DME/HHC: Pt has no current DME or need for any DME. Pt statesno hx of HHC or SNF in past. Pt states has OP therapy after excision of brain hemangioma end of June 2021. Pt states no concerns with going home at time of discharge. Pt is retired. Pt states does not smoke cigarettes but does occasionally drink ETOH. Pt voices no further concerns/needs. CM to follow for any further discharge planning/needs. Advised pt to ask for CM if any further questions/concerns/needs arise, voices understanding. Pt Goal: Home Plan[place] SOFIA MERCEDES
[2021-09-02 10:57] LABS: Osmolality, Urine 624 mOsm/KG
[2021-09-02 10:57] LABS: Osmolality, Serum 262 mOsm/KG (280-301)
[2021-09-02] MEDS: Lactated Ringers 1,000 ML 100 ML IV (12:41)
[2021-09-02] MEDS: Metoclopramide 10 MG/2 ML Vial 5 MG IV ×2 (12:41→18:01)
--- NOTE | 2021-09-02 12:47 | CT_ITS ---
STUDY: CT ABDOMEN AND PELVIS WITHOUT CONTRAST REASON FOR EXAM: Male, 66 years old. distenstion -- oral contrast only RADIATION DOSAGE (If Supplied By Facility): CTDIvol = ( 7.88 ) mGy, DLP = ( 421.20 ) mGycm TECHNIQUE: Transaxial images were obtained from the dome of the diaphragm to the symphysis pubis with oral contrast, and without intravenous contrast. Sagittal and coronal images were reconstructed. Individualized dose optimization techniques were used for this CT. COMPARISON: None. FINDINGS: The visualized lung bases are unremarkable. Moderate pericardial effusion. Normal liver. Normal gallbladder and extrahepatic biliary system. Normal spleen. Normal pancreas. Normal bilateral adrenal glands. Normal right kidney. Normal left kidney. Normal visualized stomach. Normal small intestine. Normal colon. The appendix is visualized and appears normal. Normal abdominal aorta. Normal inferior vena cava. Normal retroperitoneum. Normal urinary bladder. Normal abdominal wall. Mild dextro scoliosis of the lumbar spine with degenerative disc disease. CT/Abdomen/Pel W ORAL Cont Only IMPRESSION: Normal unenhanced CT of the abdomen and pelvis. Moderate pericardial effusion. Electronically Signed: David Adam MD at 16:40 EDT ,
--- NOTE | 2021-09-02 14:18 | PN.HOSP_ITS ---
Subjective Subjective Patient with another emesis yesterday afternoon however no further emesis since then. Continues to complain of lightheadedness on a fairly consistent basis. P.o. intake has been poor as he has been nauseated and overall not hungry. I did discuss with him the results of his gastric emptying study which showed mar kedly delayed gastric emptying and the CAT scan that I ordered for his abdomen pelvis as well as a GI consult. Objective Data Objective Data Vital Signs: Vital Signs Temp Pulse Resp BP Pulse Ox 98.1 F 97 14 135/96 H 99 09/02/21 08:32 09/02/21 11:01 09/02/21 08:32 09/02/21 10:45 09/02/21 08:32 Oxygen Delivery Method Room Air Weight: 82.5 kg Body Mass Index (BMI) 25.3 Intake & Output: Intake and Output for Last 24 Hours 08/31/21 09/01/21 09/02/21 23:59 23:59 23:59 Intake Total 1000 / 1000 1000 / 1000 940 / 940 Output Total 900 / 900 Balance 1000 / 750 100 / 100 940 / 940 Lab / Micro Data Result Diagrams: 09/02/21 05:12 09/02/21 05:12 Labs: Laboratory Results - last 24 hr 09/02/21 03:25: POC Glucose 122 H 09/02/21 05:12: WBC 11.0, RBC 4.32 L, Hgb 13.0, Hct 36.7 L, MCV 85.0, MCH 30.1, MCHC 35.4, RDW Std Deviation 38.9, RDW Coeff of Frida 12.8, Plt Count 231, MPV 10.0, Immature Gran % (Auto) 0.500, Neut % (Auto) 80.5 H, Lymph % (Auto) 10.8 L, [place] % (Auto) 7.8, Eos % (Auto) 0.1, Baso % (Auto) 0.3, Absolute Neuts (auto) 8.8 H, Absolute Lymphs (auto) 1.18, Nucleated RBC % 0 09/02/21 05:12: Sodium 126 L, Potassium 4.0, Chloride 95 L, Carbon Dioxide 24.0, Anion Gap 7, BUN 9, Creatinine 0.61 L, Estim Creat Clear Calc 130.30, Est GFR (MDRD) Af Amer 172, Est GFR (MDRD) Non-Af 142, BUN/Creatinine Ratio 14.8, Glucose 134 H, Calcium 8.6 09/02/21 07:44: Urine Osmolality 624, Ur Random Sodium 125 09/02/21 10:28: Serum Osmolality 262 L Radiography Diagnostic Testing: Radiology Impression Brain MRI 09/01/21 11:02 IMPRESSION: 1. Status post right occipital craniotomy with metal plate in place causing artifact. There is a fluid collection below the craniotomy site in the soft tissue suggestive of overlying postoperative seroma measuring 64 x 37 x 63mm. There are no air locules to suggest an abscess. However, this is not entirely excluded given the time frame of the surgery. 2. Chronic involutional changes of the brain. Electronically Signed: Jeronimo Elliott MD at 15:55 EDT , Gastric Emptying Nuclear Medicine 09/02/21 07:17 IMPRESSION: Delayed gastric emptying. Electronically Signed: David Adam MD at 11:35 EDT , Physical Exam Const alert, oriented x3 and no apparent distress Constitutional Narrative: Upper middle-aged white male sitting up in bed, appears nontoxic but it appears as if he does not feel well Orientation / Consciousness: awake, oriented to person, oriented to place and oriented to time Exam Limitations: no limitations HEENT normocephalic and moist oral mucous membranes HEENT Narrative: Ecchymosis above his left eye with worsening of the bruising since admission, fluctuant fluid-filled area in his posterior right occipital area that is not erythematous or tender Head and Scalp: normocephalic Eyes PERRL and EOMs intact bilaterally Resp normal respiratory effort, no retractions, no use of accessory muscles and clear to auscultation bilaterally Auscultation: Negative for crackles, rales, rhonchi or wheezes Cardio regular rate, regular rhythm, S1 normal heart sound, S2 normal heart sound, no murmurs, no rub, no gallops, no clicks and no JVD Cardio Narrative: A. fib, mildly tachycardic Peripheral Pulses: pulses 2+ throughout GI normal to inspection, nondistended, normoactive bowel sounds, soft to palpation, non-tender and non-distended; Negative for hepatosplenomegaly Extremity normal to inspection and no clubbing, cyanosis or edema Peripheral Pulses: Yes pulses 2+ throughout Skin Skin Narrative: Wounds as noted above Lesions: no lesions Rashes: no rashes Trauma: no lacerations or abrasions Neuro oriented x3, CN's II-XII intact bilaterally, moves all extremities, no focal motor deficits, no sensory deficits noted and deep tendon reflexes 2+ bilaterally Sensorium / Orientation: awake and alert Speech: speech normal Psych mental status grossly normal Psych Narrative: Affect is flattened mood seems to be somewhat depressed Assessment & Plan Assessment/Plan (1) Syncope: (2) Atrial fibrillation with RVR: (3) Leukocytosis: (4) Fever: (5) Nausea & vomiting: (6) Lightheadedness: (7) Hyponatremia: PLAN: Assessment: Syncope Fever-resolved Leukocytosis-resolved Nausea and vomiting Delayed gastric emptying Lightheadedness Hypoosmolar hypovolemic hyponatremia A. fib with RVR Right sided brain meningioma-recent excision History of prostate cancer Insulin resistance with hemoglobin A1c of 6.1 Plan: -Still some intermittent tachycardia however overall heart rates have been in the 70s to 90s, elevation seem to occur with exertion -Fever has resolved -UA is unimpressive -Blood cultures remain pending -Chest x-ray without sign of infection -CTA of his chest unremarkable other than fluid collection in stomach -With fluid collection in stomach and esophagus on CT a gastric emptying study was ordered this morning and noted to be markedly abnormal -Check contrasted CT of abdomen and pelvis for any outlet obstruction however patient is having flatus and was having bowel movements prior to presentation however p.o. intake has been extremely poor -Consult gastroenterology--> Case discussed with Dr. Armstrong -Vicky Douglas for short period of time -Patient is only taken Percocet in the evening -MRI overall unimpressive other than mild enlargement in his fluid collection- discussed with his neurosurgeon she sees no significant intracranial abnormalities that could be causing his current symptoms -TSH pending -Sinew home beta-paulina dosing -We will start clear liquid diet only for now -Antiemetics--> encouraged broth and Jell-O with clear liquids and advance as tolerated -Suspect hyponatremia is related to decreased solute intake--> IV fluids initiated given poor oral intake -Case and plan extensively discussed with the patient and the this afternoon and all questions answered and explanations given for subsequent testing based on previous results Charges/Coding Visit Charges Inpatient E&M: 62349 [facility] Hosp L2
[2021-09-02 14:54] LABS: Thyroid Stim Hormone (TSH) 2.76 uIU/mL (0.358-3.74)
--- NOTE | 2021-09-02 19:04 | PCM.CONS.GEN ---
Assessment & Plan Assessment/Plan (1) Gastroparesis: PLAN: The most common cause of gastroparesis is diabetic gastroparesis, the second, cause is medication induced gastroparesis and third most common causes status post surgery. He is prediabetic so I do not think diabetes or high blood sugar has contributed to his delayed gastric emptying. Also I do not think any medication is taken as caused his gastroparesis aches except for the fact that he was on Xarelto prior to him undergoing his neurosurgery. On his CT scan abdomen pelvis he does have moderate pericardial effusion. I do not know if this is new. However there could be some irritation of the vagus nerve or recurrent laryngeal nerve that could be contributing to his enteric function. Lastly his delayed gastric emptying could be possibly secondary to peptic ulcer disease or stricture that may be amenable to endoscopic dilation. He should undergo an EGD to evaluate his upper GI tract. He was explained alternatives, risk, benefits including not withstanding bleeding, infection, sepsis, perforation, need for emergent . Have an ASA of 3. HPI Consult Data Date of Consult: 09/02/21 HPI Narrative HPI Narrative: BASIM CAMPUZANO, is a 66 M who presented due to syncope. Patient was laying in a chair outside and upon standing, passed out. He states he did not have any symptoms prior to syncope episode. He is unsure how long he lost consciousness for. He states he woke up lying on the ground and had blood on his face. He states he was able to get himself in the house to clean up his face. His got home approximately 30 minutes later and found him in the bathroom sitting down. He denies any ongoing symptoms or complaints. He states he had excision of a fairly large meningioma at the end of June and has had some dizziness upon standing since his surgery as well as headaches however these have improved. He denies chest pain, shortness of breath, palpitations. Denies fever, chills. He has chronic atrial fibrillation and is not on anticoagulation due to recent surgery. He denies other past medical history. I was called to see him due to some persisting nausea vomiting and abnormal imaging. Patient says ever since he had a surgery on 07/14/2021 he has been having a decreased appetite and some intermittent nausea. Patient has lost about 10 pounds since his surgery. He has a history of has been to not take any medicines for glucose control. He was started on Xarelto prior to him undergoing his neurosurgery and has not been on it since his neurosurgery. He was on it for 3 weeks prior to his surgery. He is scheduled to possibly go back on it and have a scheduled cardioversion by his marketing representative. He says however his marketing representative does not know if he is in the hospital at this time. He had a CT scan of the chest and abdomen pelvis to look for pulmonary embolism and to further evaluate his nausea vomiting. [facility] Medical History (Updated 09/02/21 @ 19:[address] Booth Friend, DO) Atrial fibrillation Benign meningioma Pre-diabetes Home Medications acetaminophen [Tylenol] 650 mg PO Q6H PRN 08/31/21 [History Last Taken 08/31/21] aspirin 81 mg PO DAILY 08/31/21 [History Last Taken 08/30/21] metoprolol tartrate 25 mg PO DAILY 08/31/21 [History Last Taken 08/30/21] oxycodone-acetaminophen [Percocet] 1 tab PO Q6H PRN 08/31/21 [History Last Taken 08/30/21] Allergy/AdvReac Type Severity Reaction Status Date / Time No Known Allergies Allergy Verified 08/31/21 14:16 Family History (Updated 08/31/21 @ 18:27 by Khushi Schulz NP, VEHICLE MECHANIC-C) Mother Diabetes Father CAD (coronary artery disease) Surgical History History of total right knee replacement Hx of prostatectomy Meningioma determined by biopsy of brain Social History (Updated 08/31/21 @ 18:29 by Khushi Schulz NP, VEHICLE MECHANIC-C) household members: spouse Smoking Status: Never smoker alcohol intake: never substance use type: does not use ROS Review of Systems ROS Unobtainable: other Constitutional Constitutional: Denies fatigue, fever(s), poor appetite, weight gain or weight loss ENT HEENT: Denies mouth lesions Cardiovascular Cardiovascular: Denies abdominal bloating, abdominal edema or abdominal pain Respiratory/Chest Respiratory/Chest: Denies change in mental status, change in phlegm color, chest congestion or chest tightness Gastrointestinal Gastrointestinal: Reports systems reviewed and no addt'l complaints, except as documented, as per HPI, none, belching, bloating, dyspepsia, early satiety, nausea and other Genitourinary Genitourinary: Denies abdominal discomfort, burning urination or itching Musculoskeletal Musculoskeletal: Reports as per HPI; Denies muscle weakness or myalgias Integumentary Integumentary: Denies jaundice Neurologic Neurologic: Denies lack of coordination or weakness Psychiatric Psychiatric: Denies confusion, depression, memory loss, mood swings, paranoia or suicidal ideation Endocrine Endocrinology: Denies systems reviewed and no addt'l complaints, except as documented Hematologic/Lymphatic Hematologic/Lymphatic: Denies anemia, easy bleeding, easy bruising or lymphadenopathy Allergic/Immunologic Allergic/Immunologic: Denies systems reviewed and no addt'l complaints, except as documented Physical Exam Const alert General Appearance: cooperative Orientation / Consciousness: oriented to person HEENT hearing grossly normal bilaterally Head and Scalp: normal to inspection Face and Sinus: face symmetric Nose: external nose normal Mouth: oral and palatal mucosa normal Eyes conjunctivae normal General Eye: normal appearance of both eyes Neck full ROM General: normal visual inspection Lymph Lymphatic: no lymphadenopathy noted Chest inspection of chest normal and palpation of chest normal Chest: symmetrical chest wall rise Resp normal respiratory effort Effort and Inspection: able to speak in complete sentences Cardio regular rate GI non-distended Percussion: normal to percussion Rectal Exam: deferred Neuro Speech: speech normal Gait (Neuro): normal gait Lab / Micro Data Result Diagrams: 09/02/21 05:12 09/02/21 05:12 Labs: Laboratory Results - last 24 hr 09/02/21 03:25: POC Glucose 122 H 09/02/21 05:12: WBC 11.0, RBC 4.32 L, Hgb 13.0, Hct 36.7 L, MCV 85.0, MCH 30.1, MCHC 35.4, RDW Std Deviation 38.9, RDW Coeff of Frida 12.8, Plt Count 231, MPV 10.0, Immature Gran % (Auto) 0.500, Neut % (Auto) 80.5 H, Lymph % (Auto) 10.8 L, Stan[place]aus % (Auto) 7.8, Eos % (Auto) 0.1, Baso % (Auto) 0.3, Absolute Neuts (auto) 8.8 H, Absolute Lymphs (auto) 1.18, Nucleated RBC % 0 09/02/21 05:12: Sodium 126 L, Potassium 4.0, Chloride 95 L, Carbon Dioxide 24.0, Anion Gap 7, BUN 9, Creatinine 0.61 L, Estim Creat Clear Calc 130.30, Est GFR (MDRD) Af Amer 172, Est GFR (MDRD) Non-Af 142, BUN/Creatinine Ratio 14.8, Glucose 134 H, Calcium 8.6 09/02/21 05:12: TSH 2.76 09/02/21 07:44: Urine Osmolality 624, Ur Random Sodium 125 09/02/21 10:28: Serum Osmolality 262 L Radiology Impression Gastric Emptying Nuclear Medicine 09/02/21 07:17 IMPRESSION: Delayed gastric emptying. Electronically Signed: David Adam MD at 11:35 EDT , Abdomen CT 09/02/21 12:47 IMPRESSION: Normal unenhanced CT of the abdomen and pelvis. Moderate pericardial effusion. Electronically Signed: David Adam MD at 16:40 EDT , Charges/Coding Visit Charges Inpatient E&M: 93755 Init Hosp L2
[2021-09-03] VITALS (19 sets, daily range): BP systolic 105–139; BP diastolic 67–103; PULSE 84–136; RESP 16–20; TEMP 36.1–36.8; O2SAT 94–98; BMI 25.3
--- NOTE | 2021-09-03 | EGD_PTH ---
PATIENT: BASIM CAMPUZANO LOC: [facility] U#:[id number] AGE/SX: 66/M ROOM: [facility] RE08/31/[address]: Dr. Mary Ellen Bender DO : 1955 BED: 1 DIS: 09/04/2021 SPEC #: [id number] RECD: 09/03/21 16:02 STATUS: JENNIFER CURRAN #: [id number] EARL: 09/03/21 00:[address]: Leobardo Armstrong DEPT: SURGICAL PATHOLOGY RECD BY: Tanmay Major ENTERED: 09/06/21 08:12 SP TYPE: EGD BIOPSY OTHR DR: MD Dr. Jeff Becerra MD Dr. Kathryn Lee, DO Dr. Mark Tereletsky, Tissues: A - Duodenum, NOS B - Gastric mucous membrane C - Esophageal mucous membrane Procedures: Special Stain Group II Surgery Specimen Level IV Alcian Blue/PAS (control) Comments: @ Ordering doctor for SUIV edited from to @ mathew CERVANTES at 09/06/21 08 @ Submitting doctor edited from to @ by SIRIAOD at 09/06/21 0841 HEADER OPERATION: EGD ([facility]), biopsy PRE-OP DIAGNOSIS: Gastroparesis TISSUE SUBMITTED: A ? Duodenum biopsy, B ? Gastric body biopsy, C ? Distal esophagus biopsy MICROSCOPIC DIAGNOSIS A. Duodenum, biopsy: A fragment of duodenal mucosa, no pathologic diagnosis. B. Gastric body, biopsy: Minimal gastritis. See microscopic description and comment. C. Distal esophagus, biopsy: Fragments of gastric mucosa with mild chronic inflammation. Intestinal metaplasia (goblet cell metaplasia) not identified. See comment. SJ:angel 09/07/2021 COMMENT B. The results of immunohistochemistry for Helicobacter pylori will be reported separately ([id number]). C. Alcian blue/PAS stain with matched control is used in the evaluation of the specimen. MICROSCOPIC DESCRIPTION Slides are reviewed. B. The specimen shows fragments of gastric mucosa with chronic inflammatory cell infiltrates in the lamina propria consisting of lymphocytes and plasma cells, consistent with minimal chronic gastritis. GROSS DESCRIPTION A - Received in fixative is one container labeled with the patient's name and designated duodenum biopsy. The specimen consists of one irregular fragment of light alfred soft tissue that measures 0.4 x 0.3 x 0.1 cm. The specimen is totally submitted in one cassette. B - Received in fixative is one container labeled with the patient's name and designated gastric body biopsy. The specimen consists of one irregular fragment of light alfred soft tissue that measures 0.6 x 0.3 x 0.1 cm. The specimen is totally submitted in one cassette. C - Received in fixative is one container labeled with the patient's name and designated distal esophagus biopsy. The specimen consists of multiple irregular fragments of light alfred soft tissue that in aggregate measure 1.3 x 0.3 x 0.1 cm. The specimen is totally submitted in one cassette. / SJ:rg 09/06/2021 TC:3 CPT: 65204 x3, 10400
[2021-09-03] MEDS: Metoclopramide 10 MG/2 ML Vial 5 MG IV ×4 (00:08→18:20)
[2021-09-03] MEDS: Lactated Ringers 1,000 ML 100 ML IV ×3 (00:10→14:57)
[2021-09-03] MEDS: Acetaminophen 325 MG Tablet 650 MG PO ×3 (00:14→15:17)
[2021-09-03] MEDS: 0.9% Saline Lock 10 ML Syringe IV ×3 (00:16→21:29)
[2021-09-03 07:02] LABS: AST(SGOT) 11 U/L (15-37); Alanine Aminotransfer ALT/SGPT 26 U/L (16-61); Alkaline Phosphatase 45 U/L (45-117); Anion Gap 6 (5-15); BUN 9 mg/dL (7-18); BUN/Creat Ratio 13.3 RATIO (10-20); Calcium,Total 8.8 mg/dL (8.5-10.1); Chloride 97 mmol/L (98-107); Creatinine, Serum 0.68 mg/dL (0.70-1.30); EST Glomerular Filtration Rate 126 mL/min (>60); Est Glom Filt Rate - Afr Amer 152 mL/min (>60); Estimated Creatinine Clearance 116.89 ml/min; Glucose 112 mg/dL (74-106); Potassium 4.3 mmol/L (3.5-5.1); Sodium Level 132 mmol/L (136-145)
[2021-09-03] MEDS: oxyCODONE 5 MG Tablet PO ×2 (07:59→15:16)
[2021-09-03] MEDS: Metoprolol(XL)Succ 50 MG Tablet 75 MG PO (09:26)
--- NOTE | 2021-09-03 10:10 | ECHOD_ITS ---
Reason For Study: ATRIAL FIB-FLUTTER Procedure This was a 2D Doppler, Color Flow transthoracic echocardiogram. The exam was of adequate technical quality. Exam performed portable in patient room. Left Ventricle Normal LV size. Left ventricular systolic function is lower limits of normal. The estimated ejection fraction is 50 %. Unable to assess diastolic dysfunction. No regional wall motion abnormalities noted. Right Ventricle Normal RV size. Normal systolic function. Atria The left atrium is moderately enlarged. The right atrium is mildly enlarged. No doppler evidence for ASD. Mitral Valve There is no mitral annular calcification. Normal mitral valve. Mild-Moderate (1-2+) mitral valve insufficiency. Tricuspid Valve Normal tricuspid valve. Mild tricuspid valve insufficiency. Right ventricular systolic pressure estimated to be 31 mmHg. Aortic Valve Trisinus/trileaflet aortic valve. Normal aortic valve. Pulmonic Valve The pulmonic valve is not well visualized. Great Vessels Normal sized aortic root. Pericardium/Pleural Trivial pericardial effusion. There are no echocardiographic indications of cardiac tamponade. MMode/2D Measurements & Calculations LVIDd: 4.4 cm IVSd: 1.2 cm Ao root diam: 3.3 cm LVIDs: 3.4 cm LVPWd: 1.2 cm RVDd: 4.3 cm FS: 22.7 % LAV(MOD-bp): 77.4 ml LVAd ap4: 34.2 cm2 SV(MOD-sp4): 55.9 ml LAV(MOD-bp) Indexed: 37.2 ml/m2 LVLd ap4: 8.0 cm LAV(MOD-sp2): 75.9 ml EDV(MOD-sp4): 122.1 ml LAV(MOD-sp4): 74.2 ml EDV(sp4-el): 123.7 ml LVAs ap4: 24.1 cm2 LVLs ap4: 7.4 cm ESV(MOD-sp4): 66.1 ml ESV(sp4-el): 66.6 ml EF(MOD-sp4): 45.8 % EF(sp4-el): 46.2 % SV(sp4-el): 57.2 ml LA A4 area: 23.8 cm2 LA dimension(2D): 4.7 cm RA A4 area: 21.8 cm2 Doppler Measurements & Calculations MV E max melanie: 101.7 cm/sec Ao V2 max: 124.8 cm/sec LV V1 max: 83.3 cm/sec Ao max P.3 mmHg LV V1 max P.8 mmHg PA V2 max: 79.4 cm/sec TR max melanie: 265.0 cm/sec TR max P.1 mmHg ECHO/Echo Complete Interpretation Summary Left ventricular systolic function is lower limits of normal. The estimated ejection fraction is 50 %. The left atrium is moderately enlarged. The right atrium is mildly enlarged. Mild-Moderate (1-2+) mitral valve insufficiency. Mild tricuspid valve insufficiency. Trivial pericardial effusion. There are no echocardiographic indications of cardiac tamponade. Right ventricular systolic pressure estimated to be 31 mmHg. Unable to assess diastolic dysfunction. Ordering Physician: Mary Ellen Bender Referring Physician: TELMA CARRANZA Performed By: Vero Mcdonnell RDCS
--- NOTE | 2021-09-03 11:04 | CON.PCM.CA_ITS ---
Assessment & Plan Assessment/Plan (1) Atrial fibrillation with RVR: (2) Syncope: PLAN: * Echocardiogram is pending * We did increase patient's metoprolol to help control his heart rate. He was given an extra dose late this morning. We will continue to monitor to see how he is doing. It is possible that his tachycardia is related to dehydration as patient has not been eating as much as he had been prior to his surgery. * Patient has not had any pauses noted on telemetry, do not feel at this time that outpatient monitoring needs to be done. If he has any further episodes this can be reconsidered. * Patient can follow-up with outside biodiesel process control technician after hospital stay. * This case was reviewed with Dr. Stein, he agrees with plan of care HPI Consult Data Date of Consult: 09/03/21 HPI Narrative HPI Narrative: BASIM CAMPUZANO, is a 66-year-old gentleman that presented to the emergency room on August 31, 2021 for syncope. Patient states that laying in a chair outside upon standing he passed out. He did not have any symptoms prior to his syncopal event. He was unsure how long he was unconscious for. He woke up on the ground lying with blood on his face. Patient did continue to have symptoms after getting up and he was brought into the emergency room for further evaluation. He was noted to be in atrial fibrillation with RVR with a heart rate of [address] demonstrated stable postoperative changes. Troponin was negative. CTA was negative for PE. Patient was noted to be somewhat orthostatic. He was also noted to have exertional tachycardia. His beta- paulina has been increased prior to consult. He does have a history of atrial fibrillation. This was discovered prior to his surgery this past May. He did establish with Ep at [facility]. Plan is to proceed with DCCV after he can safely resume his anticoagulation. In June 2021 he underwent an excision of a benign meningioma. Patient states that he has not had any chest discomfort prior to all this. He was not aware of his atrial fibrillation until he was at the neurologist office. He had not had any palpitations that he is aware of. He does not have any worsening shortness of breath. He has had lightheadedness since his surgery. Since his surgery he is also had nausea and has lost 15 pounds. He states that this is just because he has not been able to eat. He is active for his age. [facility] Medical History Atrial fibrillation Benign meningioma Pre-diabetes Home Medications acetaminophen [Tylenol] 650 mg PO Q6H PRN 08/31/21 [History Last Taken 08/31/21] aspirin 81 mg PO DAILY 08/31/21 [History Last Taken 08/30/21] metoprolol tartrate 25 mg PO DAILY 08/31/21 [History Last Taken 08/30/21] oxycodone-acetaminophen [Percocet] 1 tab PO Q6H PRN 08/31/21 [History Last Taken 08/30/21] Allergy/AdvReac Type Severity Reaction Status Date / Time No Known Allergies Allergy Verified 08/31/21 14:16 Family History (Updated 08/31/21 @ 18:27 by Khushi Schulz NP, TAPE CUTTER-C) Mother Diabetes Father CAD (coronary artery disease) Surgical History History of total right knee replacement Hx of prostatectomy Meningioma determined by biopsy of brain Social History (Updated 08/31/21 @ 18:29 by Khushi Schulz NP, TAPE CUTTER-C) household members: spouse Smoking Status: Never smoker alcohol intake: never substance use type: does not use ROS ROS Narrative See HPI Physical Exam Const alert, oriented x3, no apparent distress and healthy appearing HEENT normocephalic, head/scalp atraumatic, hearing grossly normal bilaterally, external ears normal, external nose normal and moist oral mucous membranes Eyes PERRL, EOMs intact bilaterally, conjunctivae normal and no scleral icterus Neck no lymphadenopathy, supple and no JVD Resp normal respiratory effort and clear to auscultation bilaterally Cardio regular rate, regular rhythm, S1 normal heart sound, S2 normal heart sound, no murmurs, no rub, no gallops, no clicks, no JVD and peripheral pulses 2+ throughout GI normal to inspection, nondistended, normoactive bowel sounds, soft to palpation, non-tender and non-distended Extremity normal to inspection, normal capillary refill, no clubbing, cyanosis or edema and no pedal edema Neuro oriented x3, CN's II-XII intact bilaterally, moves all extremities and no focal motor deficits Psych cooperative and affect normal Risk Stratification Risk Stratification Applicable: No Charges/Coding Visit Charges Office Visits / Consults: 06229 IP Consult L3 Objective Data Vital Signs: Vital Signs Temp Pulse Resp BP Pulse Ox 97 F L 99 18 137/91 H 94 09/03/21 09:14 09/03/21 09:26 09/03/21 09:14 09/03/21 09:26 09/03/21 09:14 Oxygen Delivery Method Room Air Weight: 181 lb 14.102 oz Body Mass Index (BMI) 25.3 Intake & Output: Intake and Output for Last 24 Hours 09/01/21 09/02/21 09/03/21 23:59 23:59 23:59 Intake Total 1000 / 1000 2060 / 2060 926.67 / 926.67 Output Total 900 / 900 600 / 600 Balance 100 / 100 1460 / 1460 926.67 / 926.67 Lab / Micro Data Result Diagrams: 09/02/21 05:12 09/03/21 05:35 Labs: Laboratory Results - last 24 hr 09/02/21 05:12: TSH 2.76 09/03/21 05:35: Sodium 132 L, Potassium 4.3, Chloride 97 L, Carbon Dioxide 29.0, Anion Gap 6, BUN 9, Creatinine 0.68 L, Estim Creat Clear Calc 116.89, Est GFR (MDRD) Af Amer 152, Est GFR (MDRD) Non-Af 126, BUN/Creatinine Ratio 13.3, Glucose 112 H, Calcium 8.8, Total Bilirubin 0.60, AST 11 L, ALT 26, Alkaline Phosphatase 45, Total Protein 6.0 L, Albumin 3.0 L, Globulin 3.0, Albumin/Globulin Ratio 1.0 Cardiology Labs/Tests 09/03/21 05:35: Sodium 132 L, Potassium 4.3, Chloride 97 L, Carbon Dioxide 29.0, Anion Gap 6, BUN 9, Creatinine 0.68 L, Est GFR (MDRD) Af Amer 152, Est GFR (MDRD) Non-Af 126, BUN/Creatinine Ratio 13.3, Glucose 112 H, Calcium 8.8, Total Bilirubin 0.60 Rhythm: EKG: ECHO: Stress Test: Cardiac Cath: PCI: CT Surgery: Holter monitor: EPS: PPM: CXR: Chest CT Scan: Radiography Diagnostic Testing: Radiology Impression Gastric Emptying Nuclear Medicine 09/02/21 07:17 IMPRESSION: Delayed gastric emptying. Electronically Signed: David Adam MD at 11:35 EDT , Abdomen CT 09/02/21 12:47 IMPRESSION: Normal unenhanced CT of the abdomen and pelvis. Moderate pericardial effusion. Electronically Signed: David Adam MD at 16:40 EDT ,
--- NOTE | 2021-09-03 11:30 | IMM_PTH ---
PATIENT: BASIM CAMPUZANO LOC: [facility] U#:[id number] AGE/SX: 66/M ROOM: [facility] RE08/31/[address]: Dr. Mary Ellen Bender DO : 1955 BED: 1 DIS: 09/04/2021 SPEC #: [id number] RECD: 09/06/21 08:38 STATUS: JENNIFER REQ #: [id number] EARL: 09/03/21 11:[address]: Leobardo Armstrong DEPT: IMMUNOHISTOCHEMISTRY RECD BY: Meghan Strong ENTERED: 09/06/21 08:40 SP TYPE: IMMUNO OTHR DR: MD Dr. Jeff Becerra MD Dr. Kathryn Lee, DO Dr. Mark Tereletsky, DO Tissues: B - Stomach, NOS Procedures: H Pylori (initial) PHYSICIAN & INSTITUTION [place] [id number] SPECIMEN INFORMATION: Tissue Source: B ? Gastric body biopsy Clinical Info: Gastroparesis Specimen Number: [id number] CPT code: 41069 METHODOLOGY: Deparaffinized sections of prefer/formalin-fixed tissue or PAP/DQ stained slides are incubated with monoclonal/polyclonal antibodies/oligonucleotide probes. Localization is made via biotin free immunoperoxidase method. Appropriate controls are performed and reacted as expected. Results on target cell population are indicated in the following table: RESULTS: ANTIBODY / CLONE RESULT Block B H Pylori (polyclonal) negative These tests were developed and their performance characteristics determined by [facility]. They may not have been cleared or approved by the U.S. Food and Drug Administration. The FDA has determined that such clearance or approval is not necessary. The above immunohistochemical/dualISH markers are ordered and reviewed by the Pathologist. INTERPRETATION: B. Gastric body, biopsy: Negative for Helicobacter pylori organisms. SJ:angel 09/07/2021
--- NOTE | 2021-09-03 11:56 | OP.EGD_ITS ---
Patient Name: Ehsan Fernandez Procedure Date: 09/03/2021 11:35 AM Date of : 1955 Age: 66 Procedure: Upper GI endoscopy Indications: Heartburn, Suspected esophageal reflux Providers: Leobardo Armstrong DO Medicines: Monitored Anesthesia Care Patient Profile: This is a 66 year old male. Refer to note in patient chart for documentation of history and physical. Patient has symptoms of acute nausea and acute vomiting. Complications: No immediate complications. Procedure: Pre-Anesthesia Assessment: - Prior to the procedure, a History and Physical was performed, and patient medications and allergies were reviewed. The risks and benefits of the procedure and the sedation options and risks were discussed with the patient. All questions were answered and informed consent was obtained. Patient identification and proposed procedure were verified by the physician. Mental Status Examination: normal. Airway Examination: normal oropharyngeal airway and neck mobility. Prophylactic Antibiotics: The patient does not require prophylactic antibiotics. Prior Anticoagulants: The patient has taken no previous anticoagulant or antiplatelet agents. After reviewing the risks and benefits, the patient was deemed in satisfactory condition to undergo the procedure. The anesthesia plan was to use moderate sedation / analgesia (conscious sedation). Immediately prior to administration of medications, the patient was re-assessed for adequacy to receive sedatives. The heart rate, respiratory rate, oxygen saturations, blood pressure, adequacy of pulmonary ventilation, and response to care were monitored throughout the procedure. The physical status of the patient was re-assessed after the procedure. After obtaining informed consent, the endoscope was passed under direct vision. Throughout the procedure, the patient's blood pressure, pulse, and oxygen saturations were monitored continuously. The gastroscope was introduced through the mouth, and advanced to the second part of duodenum. The upper GI endoscopy was accomplished without difficulty. The patient tolerated the procedure well. Scope In: 11:42:55 AM Scope Out: 11:50:13 AM Total Procedure Duration Time 0 hours 7 minutes 18 seconds Findings: LA Grade C (one or more mucosal breaks continuous between tops of 2 or more mucosal folds, less than 75% circumference) esophagitis with bleeding was found 35 to 40 cm from the incisors. Biopsies were taken with a cold forceps for histology. Verification of patient identification for the specimen was done. Estimated blood loss was minimal. Patchy mildly erythematous mucosa without bleeding was found in the gastric body. Biopsies were taken with a cold forceps for histology. Verification of patient identification for the specimen was done. Estimated blood loss was minimal. Patchy mildly erythematous mucosa without active bleeding and with no stigmata of bleeding was found in the first portion of the duodenum. Biopsies were taken with a cold forceps for histology. Verification of patient identification for the specimen was done. Estimated blood loss was minimal. Impression: - LA Grade C reflux esophagitis. Biopsied. - Erythematous mucosa in the gastric body. Biopsied. - Erythematous duodenopathy. Biopsied. Recommendation: - Return to the floors - Resume previous diet. - Continue present medications. - Await pathology results. Procedure Code(s): --- Professional --- 80024, Esophagogastroduodenoscopy, flexible, transoral; with biopsy, single or multiple CPT copyright 2017 [employer]. All rights reserved. The codes documented in this report are preliminary and upon ethylene compressor operator review may be revised to meet current compliance requirements. Leobardo Armstrong DO 09/03/2021 11:56:04 AM This report has been signed electronically. Number of Addenda: 1 Note Initiated On: 09/03/2021 11:35 AM Addendum Number: 1 Addendum Date: 01/21/2022 6:23:01 AM MAC was used as sedation for this procedure. Leobardo Armstrong DO 01/21/2022 6:23:06 AM This report has been signed electronically.
--- NOTE | 2021-09-03 11:57 | OP.CCLET_ITS ---
01/21/2022 Jeff Meyer MD Re : Upper GI endoscopy procedure for Ehsan Fernandez Dear Dr. Meyer This procedure was performed on Friday, September 03, 2021. My impressions and recommendations are as follows: Impressions : - LA Grade C reflux esophagitis. Biopsied. - Erythematous mucosa in the gastric body. Biopsied. - Erythematous duodenopathy. Biopsied. Recommendations : - Return to the floors - Resume previous diet. - Continue present medications. - Await pathology results. My findings are described in the full procedure note, which is enclosed. If I can be of further assistance, please feel free to contact me at . Sincerely, Leobardo Armstrong, 09/03/2021 11:56:04 AM This report has been signed electronically.
[2021-09-03] MEDS: Metoprolol(XL)Succ 25 MG Tablet PO (12:43)
--- NOTE | 2021-09-03 13:49 | PN.HOSP_ITS ---
Subjective Subjective Patient still with some lightheadedness however that has improved. EGD planned for this morning. Patient still with significant tachycardia during exertion however heart rates at rest are normal and predominantly less than 100 bpm. No current nausea. Objective Data Objective Data Vital Signs: Vital Signs Temp Pulse Resp BP Pulse Ox 97.5 F L 101 H 20 H 139/85 H 97 09/03/21 12:39 09/03/21 12:43 09/03/21 12:39 09/03/21 12:43 09/03/21 12:39 Oxygen Delivery Method Room Air Weight: 82.5 kg Body Mass Index (BMI) 25.3 Intake & Output: Intake and Output for Last 24 Hours 09/01/21 09/02/21 09/03/21 23:59 23:59 23:59 Intake Total 1000 / 1000 2060 / 2060 1026.67 / 1026.67 Output Total 900 / 900 600 / 600 Balance 100 / 100 1460 / 1460 1026.67 / 1026.67 Lab / Micro Data Result Diagrams: 09/02/21 05:12 09/03/21 05:35 Labs: Laboratory Results - last 24 hr 09/02/21 05:12: TSH 2.76 09/03/21 05:35: Sodium 132 L, Potassium 4.3, Chloride 97 L, Carbon Dioxide 29.0, Anion Gap 6, BUN 9, Creatinine 0.68 L, Estim Creat Clear Calc 116.89, Est GFR (MDRD) Af Amer 152, Est GFR (MDRD) Non-Af 126, BUN/Creatinine Ratio 13.3, Gl ucose 112 H, Calcium 8.8, Total Bilirubin 0.60, AST 11 L, ALT 26, Alkaline Phosphatase 45, Total Protein 6.0 L, Albumin 3.0 L, Globulin 3.0, Albumin/Globulin Ratio 1.0 Radiography Diagnostic Testing: Radiology Impression Abdomen CT 09/02/21 12:47 IMPRESSION: Normal unenhanced CT of the abdomen and pelvis. Moderate pericardial effusion. Electronically Signed: David Adam MD at 16:40 EDT , Physical Exam Const alert, oriented x3 and no apparent distress Constitutional Narrative: Upper middle-aged white male sitting up in bed, at the bedside, patient appears improved today however not baseline per his , nontoxic Orientation / Consciousness: awake, oriented to person, oriented to place and oriented to time Exam Limitations: no limitations HEENT normocephalic and moist oral mucous membranes HEENT Narrative: Healing lacerations/ecchymosis above left eye, persistent bogginess in right occipital/temporal area Head and Scalp: normocephalic Resp normal respiratory effort, no retractions, no use of accessory muscles and clear to auscultation bilaterally Auscultation: Negative for crackles, rales, rhonchi or wheezes Cardio regular rate, regular rhythm, S1 normal heart sound, S2 normal heart sound, no murmurs, no rub, no gallops, no clicks and no JVD Cardio Narrative: A. fib, mildly tachycardic Peripheral Pulses: pulses 2+ throughout GI normal to inspection, nondistended, normoactive bowel sounds, soft to palpation, non-tender and non-distended; Negative for hepatosplenomegaly Extremity normal to inspection and no clubbing, cyanosis or edema Peripheral Pulses: Yes pulses 2+ throughout Skin Lesions: no lesions Rashes: no rashes Trauma: no lacerations or abrasions Neuro oriented x3, moves all extremities, no focal motor deficits and deep tendon reflexes 2+ bilaterally Sensorium / Orientation: awake and alert Speech: speech normal Psych mental status grossly normal and affect normal Psych Narrative: Affect is flattened mood seems to be somewhat depressed Assessment & Plan Assessment/Plan (1) Syncope: (2) Atrial fibrillation with RVR: (3) Leukocytosis: (4) Fever: (5) Nausea & vomiting: (6) Lightheadedness: (7) Hyponatremia: PLAN: Assessment: Syncope Fever-resolved Leukocytosis-resolved Nausea and vomiting Delayed gastric emptying Lightheadedness Hypoosmolar hypovolemic hyponatremia A. fib with RVR--> predominantly now exertional Right sided brain meningioma-recent excision History of prostate cancer Insulin resistance with hemoglobin A1c of 6.1 Plan: -EGD today for marked gastroparesis noted on gastric emptying study -Patient with normal heart rates but remains in A. fib at rest however patient gets significant exertional tachycardia with heart rates up into the 150s just walking to the bathroom -If his heart rates were this high while he was at home this could explain his syncopal episode -Echocardiogram pending -Cardiology consulted -Case discussed with Dr. Stein and he recommended giving the patient an extra dose of 25 mg XR metoprolol today and increasing his dose tomorrow to 100 mg -? Need for ablation if this continues despite pharmacologic intervention -TSH is within normal limits -Sodium has improved -Anticipate trial of orals after EGD today -Continue Reglan for gastroparesis -We will have GI outpatient follow-up at discharge -Discharge is pending however I would like to make sure his exertional heart rates are lower and that he is able to intake p.o. without any difficulty Charges/Coding Visit Charges Inpatient E&M: 75422 Subs Hosp L2
[2021-09-03] MEDS: Polyethylene Glycol 3350 17 GM PACKET PO (18:20)
--- NOTE | 2021-09-03 18:36 | NURSING ---
Reviewed charting with Kristin Johnson RN
[2021-09-03] MEDS: Pantoprazole Sodium 40 MG Tablet PO (21:23)
[2021-09-03] MEDS: Metoprolol Tartrate 5 MG/5 ML Vial IV (21:27)
[2021-09-04] MEDS: Metoclopramide 10 MG/2 ML Vial 5 MG IV ×3 (00:12→11:42)
[2021-09-04] MEDS: oxyCODONE 5 MG Tablet PO ×3 (00:26→11:41)
[2021-09-04] MEDS: Lactated Ringers 1,000 ML 100 ML IV (01:36)
[2021-09-04 03:00] VITALS: BP 128/88; PULSE 105; RESP 18; TEMP 36.6; O2SAT 98
[2021-09-04 03:01] VITALS: PULSE 96
[2021-09-04 05:02] LABS: Absolute Lymphocyte Count 1.52 X10^3/uL (0.83-4.51); Basophil# 0.03 X10^3/uL; Basophil% 0.4 % (0-1); Eosinophil# 0.04 X10^3/uL; Eosinophils% 0.5 % (0-5); Hematocrit 35.4 % (40-54); Hemoglobin 12.6 g/dL (13.0-16.5); Lymphocyte # 1.52 X10^3/ul (0.83-4.51); Lymphocyte % 20.8 % (19-41); Mean Corp Hgb Conc 35.6 g/dL (32-36); Mean Corpuscular Hgb 30.6 pg (27.0-32.0); Mean Corpuscular Volume 85.9 fL (80-94); Monocyte# 0.72 X10^3/uL; Monocyte% 9.8 % (0-10); NRBC Flagged by Analyzer 0 % (0-5); Neutrophil # 4.96 X10^3/uL (2.7-7.7); Platelet Count 256 K/mm3 (150-450); RBC Distribution Width SD 40.5 fl (35.1-43.9); Red Blood Count 4.12 M/mm3 (4.6-6.2); White Blood Count 7.3 K/mm3 (4.4-11.0)
[2021-09-04 05:44] LABS: Anion Gap 7 (5-15); BUN 10 mg/dL (7-18); BUN/Creat Ratio 15.3 RATIO (10-20); Calcium,Total 8.4 mg/dL (8.5-10.1); Chloride 97 mmol/L (98-107); Creatinine, Serum 0.65 mg/dL (0.70-1.30); EST Glomerular Filtration Rate 130 mL/min (>60); Est Glom Filt Rate - Afr Amer 158 mL/min (>60); Estimated Creatinine Clearance 122.28 ml/min; Glucose 113 mg/dL (74-106); Sodium Level 130 mmol/L (136-145)
[2021-09-04 06:38] VITALS: PULSE 96
[2021-09-04 10:06] VITALS: BP 138/88; PULSE 93; RESP 18; TEMP 36.6; O2SAT 95
[2021-09-04 10:17] VITALS: PULSE 93
[2021-09-04] MEDS: Metoprolol(XL)Succ 100 MG Tablet PO (10:17)
[2021-09-04] MEDS: Polyethylene Glycol 3350 17 GM PACKET PO (10:17)
[2021-09-04] MEDS: Pantoprazole Sodium 40 MG Tablet PO (10:17)
[2021-09-04] MEDS: Acetaminophen 325 MG Tablet 650 MG PO (10:18)
--- NOTE | 2021-09-04 11:03 | PCM.DC.SUM ---
Providers Date of Admission: 08/31/21 Date of Discharge: 09/04/21 Primary Care Physician: Dr. Telma Carranza MD Consultations 09/02/21 12:47 Consult: Gastroenterology Routine Consulting Provider: Alberto Gastroenter[facility] Reason for Consult: gastroparesis EMERGENT Consult: No Notified: Yes Date Notified: 09/02/21 Time Notified: 12:48 Method of Notification: Verbal 09/03/21 10:10 Consult: Cardiology Routine Consulting Provider: Cierra Garcia Reason for Consult: refractory Afib with RVR EMERGENT Consult: No Notified: Yes Date Notified: 09/03/21 Time Notified: 10:11 Method of Notification: Verbal Comments:: significant exertional tachycardia HR 150 Reason For Visit: UNCONTROLLED A FIB Diagnosis Discharge Diagnosis (1) Atrial fibrillation with RVR: Status: Acute Code(s): I48.91 - Unspecified atrial fibrillation (2) Syncope: Status: Acute Code(s): R55 - Syncope and collapse (3) Moderate malnutrition: Status: Acute Code(s): E44.0 - Moderate protein-calorie malnutrition (4) Gastroparesis: Status: Acute Code(s): K31.84 - Gastroparesis (5) Reflux esophagitis: Status: Acute Code(s): K21.00 - Gastro-esophageal reflux disease with esophagitis, without bleeding Medications at Discharge Home Medications acetaminophen [Tylenol] 650 mg PO Q6H PRN 08/31/21 aspirin 81 mg PO DAILY 08/31/21 oxycodone-acetaminophen [Percocet] 1 tab PO Q6H PRN 08/31/21 metoclopramide HCl [Reglan] 5 mg PO .3x daily #90 tab 09/04/21 metoprolol succinate 100 mg PO DAILY #30 tab 09/04/21 pantoprazole 40 mg PO BID #60 tab 09/04/21 Hospital Course Operations None Procedures 2-D Echocardiogram, EGD and - (MRI brain/gastric emptying study) Summary of Care Provided Minutes Spent on Discharge: 39 Hospital Course: Mr. Fernandez is a 66-year-old white male who presented to the emergency department at [facility] on 08/31/2021 with a chief complaint of syncope. The patient reported that he was lying in a 0 gravity of chair at home with a covering umbrella and had gone to get up out of the heat. He reports when he got up that he must of fallen and he woke up on the ground. He stated at that time he noted he had blood all over himself so he decided to go into the bathroom and clean himself up however he got recurrent lightheadedness and called his that she was not home at the time. His encouraged him to come in the emergency department so he did come in to be evaluated. He denied any concurrent symptoms at the time and reported that he was feeling pretty much back to baseline at the time of admission. The patient had a recent craniotomy at the end of June for a benign meningioma. He had a prostatectomy and had a PSA that was rising and therefore serial scans were performed assessing for malignancy and he was found to have a meningioma approximately 1 year ago. Follow-up scan showed enlargement greater than expected and therefore he was taken to surgery for removal. This was done at [facility] by Dr. Seo. The patient and his report he did fairly well except for headaches, which were to be expected, up until 5 weeks and then be he began having more lightheadedness and some nausea. His p.o. intake had decreased significantly in the last week or so and the patient reported that he just was not all that hungry and having intermittent nausea. He evidently had an episode of emesis in the emergency department which is exceedingly rare for him as well as the day after admission. Upon presentation he was found to be in A. fib with RVR heart rates in the 120s. His blood work was overall unremarkable. His sodium was slightly low at 135 and it appeared that the patient might be slightly dehydrated. His troponin was normal. A CT of his brain showed no acute changes but postoperative changes were noted and the ER physician was able to talk to the patient's neurosurgeons about the events, his CT, and blood work. She did not feel that this was directly related to the neurosurgical process and that the CT had normal expected changes. The ER physician also talked to his primary pl sql developer Dr. Martinez and he recommended increasing his metoprolol 25 mg ER XR to 50 mg XR. He also had a laceration from his fall in the posterior left side of his head that was sutured in the emergency department the patient was admitted to the PCU where he continued to have tachycardia and therefore his metoprolol was increased to 75 mg daily XR. We obtained a CTA of his chest to rule out pulmonary as below some given his recent surgery and the fact that he is not on his baseline Xarelto for his atrial fibrillation secondary to his recent neurosurgery. The CTA was negative for pulmonary embolism however it showed a distended esophagus with a distended stomach. An MRI was performed to further assess his brain given his nausea and vomiting as we are was concern for concussion or further injury. This showed no acute findings and was consistent with the seroma that was demonstrated on the CT which has been chronic since his surgery but extracranial. I did have an extensive discussion with his primary neurosurgeon at [facility] and she felt after reviewing his imaging that none of his symptoms were related to anything intracranially or otherwise related to his surgery. Given these findings there was concern about gastroparesis versus obstruction and a gastric emptying study along with a CT of his abdomen pelvis was performed. His gastric emptying study was dramatically abnormal with marked delayed emptying showing 96% of gastric contents remaining in the stomach at 1 hour. We did initiate Reglan at that time via an IV. The CT of his abdomen and pelvis was overtly unremarkable however it was performed after his initial dose of Reglan was initiated. He was evaluated by gastroenterology and taken for an EGD. This was performed on 09/03/2021. The EGD showed pretty significant reflux esophagitis with erythematous mucosa in the gastric body, as well as erythematous duodenopathy. Biopsies were taken and the patient was placed on Protonix 40 mg p.o. twice daily and was maintained on Reglan 5 mg p.o. 3 times daily to be taken prior to meals. The etiology for his gastroparesis is unclear at this time however biopsies are pending as noted above. The Cardizem as noted below could further worsen this and he will need to be closely monitored. Given his persistent exertional tachycardia an echocardiogram was obtained and cardiology was consulted. Cardiology initially increased his beta-paulina from 75 mg to 100 mg daily. The patient still had some persistent exertional tachycardia however over all improvement was noted with these changes and they further added diltiazem 120 mg daily. We also asked that an outpatient event monitor be obtained to further evaluate his tachycardia, lightheadedness, and evaluate for any arrhythmias if he has any other episodes. An event monitor was felt appropriate since he is having symptoms on a fairly regular basis. He was discharged home with Reglan as above, Protonix as above, metoprolol as above, and Cardizem. Prescriptions were faxed to his pharmacy. It was recommended he follow-up with his primary care physician within a week, call for a cardiology appointment to be made as soon as he is able to be seen, his neurosurgeon as directed. We did recommend he follow-up with his primary care physician for suture removal in 7 days as he did have a posterior parietal/occipital laceration that was sutured in the emergency department. Discharge diagnoses Syncope Closed head injury Severe reflux esophagitis Gastroparesis A. fib with RVR Moderate malnutrition Head laceration status post primary closure Fever-resolved Leukocytosis-resolved Hypoosmolar hypovolemic hyponatremia-stable Right sided brain meningioma-recent excision History of prostate cancer Insulin resistance-hemoglobin A1c 6.1. Physical Exam Narrative Patient was able to tolerate dinner last night and had breakfast this morning without any significant issues. He states he has since baseline lightheadedness but no severe lightheadedness. Heart rate seems to be better with exertion this morning. Const alert, oriented x3 and no apparent distress Constitutional Narrative: Upper middle-aged white male sitting up in bed, patient looks as good as he has throughout his hospital stay and that he feels much better today General Appearance: cooperative, comfortable, well kempt and well developed Orientation / Consciousness: awake, oriented to person, oriented to place and oriented to time Exam Limitations: no limitations HEENT normocephalic, hearing grossly normal bilaterally, moist oral mucous membranes, oropharynx normal and dentition normal HEENT Narrative: Laceration on left posterior scalp healing well with stitches in place, no drainage, laceration over left thigh is healing with surrounding ecchymosis showing natural progression of pathology Eyes PERRL, EOMs intact bilaterally and conjunctivae normal Eyes Narrative: No scleral icterus Neck no lymphadenopathy, supple, no JVD and no carotid bruits Neck Narrative: Trachea midline, no thyroid enlargement Resp normal respiratory effort, no retractions, no use of accessory muscles and clear to auscultation bilaterally Auscultation: Negative for crackles, rales, rhonchi or wheezes Cardio regular rate, regular rhythm, S1 normal heart sound, S2 normal heart sound, no murmurs, no rub, no gallops, no clicks and no JVD Cardio Narrative: A. fib, mildly tachycardic Peripheral Pulses: pulses 2+ throughout GI normal to inspection, nondistended, normoactive bowel sounds, soft to palpation, non-tender and non-distended; Negative for hepatosplenomegaly Extremity normal to inspection and no clubbing, cyanosis or edema Skin no rashes or lesions noted, No no wounds, skin turgor normal, no jaundice, no petechiae and no mottling Skin Narrative: Wounds as noted above Lesions: no lesions Rashes: no rashes Trauma: no lacerations or abrasions Neuro oriented x3, CN's II-XII intact bilaterally, moves all extremities, no focal motor deficits, no sensory deficits noted and deep tendon reflexes 2+ bilaterally Sensorium / Orientation: awake and alert Speech: speech normal Motor Exam: strength 5/5 throughout Psych mental status grossly normal and affect normal Psych Narrative: Much more interactive today and appears as if he is feeling much better Medical Records Data Medical Nutrition Assessment Dietitian: Malnutrition Criteria Met Start: 09/03/21 14:55 Freq: Status: Active Protocol: Document 09/03/21 14:56 (Rec: 09/03/21 14:56 [id number]) Nutrition Malnutrition Evidence of Malnutrition Exists Yes Malnutrition (moderate): Acute Illness/Injury Evidenced By Suboptimal Energy Intake ( Moderate),Weight Loss ( Moderate) Clinical Problem Acute Disease or Injury Related Malnutrition Etiology moderate, acute malnutrition related to inadequate energy intake w/ decreased appetite after meningioma excision Signs/Symptoms as evidenced by unintentional wt loss of 13.1#/7% wt loss <2 months; estimated PO intake meeting <75% of estimated energy needs x 2 months Status Active Problem Recommendation Dietitian Recommendations/Changes continue regular diet as tolerated; will add 120mL ensure enlive 4x/day w/ medpass for additional calories/protein if consumed. Weight / BMI Weight Weight: 82.5 kg Body Mass Index (BMI) 25.3 ABG / Lab / Microbiology Data Result Diagrams: 09/04/21 03:53 09/04/21 03:53 Laboratory: Laboratory Results - last 24 hr 09/04/21 03:53: WBC 7.3, RBC 4.12 L, Hgb 12.6 L, Hct 35.4 L, MCV 85.9, MCH 30.6, MCHC 35.6, RDW Std Deviation 40.5, RDW Coeff of Frida 13.0, Plt Count 256, MPV 10.0, Immature Gran % (Auto) 0.500, Neut % (Auto) 68.0, Lymph % (Auto) 20.8, Williams % (Auto) 9.8, Eos % (Auto) 0.5, Baso % (Auto) 0.4, Absolute Neuts (auto) 5.0, Absolute Lymphs (auto) 1.52, Nucleated RBC % 0 09/04/21 03:53: Sodium 130 L, Potassium 4.0, Chloride 97 L, Carbon Dioxide 26.0, Anion Gap 7, BUN 10, Creatinine 0.65 L, Estim Creat Clear Calc 122.28, Est GFR (MDRD) Af Amer 158, Est GFR (MDRD) Non-Af 130, BUN/Creatinine Ratio 15.3, Glucose 113 H, Calcium 8.4 L Radiography Diagnostic Testing: Radiology Impression Echocardiogram 09/03/21 10:10 Interpretation Summary Left ventricular systolic function is lower limits of normal. The estimated ejection fraction is 50 %. The left atrium is moderately enlarged. The right atrium is mildly enlarged. Mild-Moderate (1-2+) mitral valve insufficiency. Mild tricuspid valve insufficiency. Trivial pericardial effusion. There are no echocardiographic indications of cardiac tamponade. Right ventricular systolic pressure estimated to be 31 mmHg. Unable to assess diastolic dysfunction. Ordering Physician: Mary Ellen Bender Referring Physician: TELMA CARRANZA Performed By: Vero Mcdonnell RDCS D/C Instructions Discharge Diet: Low fat / Low cholesterol Discharge Activity: Return to Normal Activity Meaningful Use Info Meaningful Use Diagnoses (Choose all that apply): None applicable Discharge Plan Admission Admit Date/Time: 08/31/21 18:29 Primary Reason for Your Visit: syncope Attending Provider: Mary Ellen Bender Primary Care Provider: Telma Carranza Consulting Providers: Daryl Curtis ; Cierra Garcia Instructions Additional Instructions / Restrictions: 1. Call for an appointment with your primary pl sql developer on Monday for as soon as possible given recent issues with heart rate 2. Event monitor has been ordered 3. Please follow-up within 7 days for stitch removal from your head Discharge Orders/Prescriptions Prescriptions: New metoprolol succinate 100 mg Tablet Extended Release 24 Hr 100 mg PO DAILY Qty: 30 RF: 1 pantoprazole 40 mg Tablet,Delayed Release (Dr/Ec) 40 mg PO BID Qty: 60 RF: 0 metoclopramide HCl [Reglan] 5 mg tablet 5 mg PO .3x daily Qty: 90 RF: 0 Continued acetaminophen [Tylenol] 325 mg Tablet 650 mg PO Q6H PRN (Reason: Pain) RF: 0 oxycodone-acetaminophen [Percocet] 5-325 mg Tablet 1 tab PO Q6H PRN (Reason: Pain) RF: 0 aspirin 81 mg Tablet 81 mg PO DAILY RF: 0 Discontinued metoprolol tartrate 25 mg Tablet 25 mg PO DAILY RF: 0 Other Ambulatory Orders: Cardiac Holter Monitor, 48 Hrs (Routine) Timeframe: 1 Day Facility: [facility] - Location: Cardiovascular Services Ordered By: Dr. Mary Ellen Bender Referrals / Follow Up: Telma Carranza MD [Primary Care Provider] - Within 2 Weeks Leobardo Armstrong DO [STAFF PHYSICIAN] - Within 2 Weeks Disposition Disposition (needs filled in before D/C Order can be placed): Home, Self Care Charges/Coding Visit Charges Inpatient E&M: 00275 Disch Hosp
--- NOTE | 2021-09-04 11:25 | PN.CARD_ITS ---
Subjective Subjective Overall patient is feeling better. Heart rate has improved with increasing Toprol however it is noted that when he still gets up moves around his heart rate still is elevated. Objective Data Vital Signs: Vital Signs Temp Pulse Resp BP Pulse Ox 97.9 F 93 18 138/88 H 95 09/04/21 10:06 09/04/21 10:17 09/04/21 10:06 09/04/21 10:06 09/04/21 10:06 Oxygen Delivery Method Room Air Weight: 181 lb 14.102 oz Body Mass Index (BMI) 25.3 Intake & Output: Intake and Output for Last 24 Hours 09/02/21 09/03/21 09/04/21 23:59 23:59 23:59 Intake Total 2059 / 2059 2057.34 / 2057.34 1631.67 / 1631.67 Output Total 600 / 600 Balance 1460 / 1460 2057.34 / 2057.34 1631.67 / 1631.67 Lab / Micro Data Result Diagrams: 09/04/21 03:53 09/04/21 03:53 Labs: Laboratory Results - last 24 hr 09/04/21 03:53: WBC 7.3, RBC 4.12 L, Hgb 12.6 L, Hct 35.4 L, MCV 85.9, MCH 30.6, MCHC 35.6, RDW Std Deviation 40.5, RDW Coeff of Frida 13.0, Plt Count 256, MPV 10.0, Immature Gran % (Auto) 0.500, Neut % (Auto) 68.0, Lymph % (Auto) 20.8, Evangeline % (Auto) 9.8, Eos % (Auto) 0.5, Baso % (Auto) 0.4, Absolute Neuts (auto) 5.0, Absolute Lymphs (auto) 1.52, Nucleated RBC % 0 09/04/21 03:53: Sodium 130 L, Potassium 4.0, Chloride 97 L, Carbon Dioxide 26.0, Anion Gap 7, BUN 10, Creatinine 0.65 L, Estim Creat Clear Calc 122.28, Est GFR (MDRD) Af Amer 158, Est GFR (MDRD) Non-Af 130, BUN/Creatinine Ratio 15.3, Glucose 113 H, Calcium 8.4 L Cardiology Labs/Tests 09/04/21 03:53: WBC 7.3, RBC 4.12 L, Hgb 12.6 L, Hct 35.4 L, MCV 85.9, MCH 30.6, MCHC 35.6, Plt Count 256, MPV 10.0, Immature Gran % (Auto) 0.500, Neut % (Auto) 68.0, Lymph % (Auto) 20.8, Evangeline % (Auto) 9.8, Eos % (Auto) 0.5, Baso % (Auto) 0.4, Absolute Neuts (auto) 5.0, Nucleated RBC % 0 09/04/21 03:53: Sodium 130 L, Potassium 4.0, Chloride 97 L, Carbon Dioxide 26.0, Anion Gap 7, BUN 10, Creatinine 0.65 L, Est GFR (MDRD) Af Amer 158, Est GFR (MDRD) Non-Af 130, BUN/Creatinine Ratio 15.3, Glucose 113 H, Calcium 8.4 L Rhythm: EKG: ECHO: Stress Test: Cardiac Cath: PCI: CT Surgery: Holter monitor: EPS: PPM: CXR: Chest CT Scan: Radiography Diagnostic Testing: Radiology Impression Echocardiogram 09/03/21 10:10 Interpretation Summary Left ventricular systolic function is lower limits of normal. The estimated ejection fraction is 50 %. The left atrium is moderately enlarged. The right atrium is mildly enlarged. Mild-Moderate (1-2+) mitral valve insufficiency. Mild tricuspid valve insufficiency. Trivial pericardial effusion. There are no echocardiographic indications of cardiac tamponade. Right ventricular systolic pressure estimated to be 31 mmHg. Unable to assess diastolic dysfunction. Ordering Physician: Mary Ellen Bender Referring Physician: TELMA CARRANZA Performed By: Vero Mcdonnell, SOHAIL Physical Exam Const alert, oriented x3, no apparent distress and healthy appearing HEENT normocephalic, head/scalp atraumatic, hearing grossly normal bilaterally, external ears normal, external nose normal and moist oral mucous membranes Eyes PERRL, EOMs intact bilaterally, conjunctivae normal and no scleral icterus Neck no lymphadenopathy, supple and no JVD Resp normal respiratory effort and clear to auscultation bilaterally Cardio regular rate, regular rhythm, S1 normal heart sound, S2 normal heart sound, no murmurs, no rub, no gallops, no clicks, no JVD and peripheral pulses 2+ th roughout GI normal to inspection, nondistended, normoactive bowel sounds, soft to palpation, non-tender and non-distended Extremity normal to inspection, normal capillary refill, no clubbing, cyanosis or edema and no pedal edema Neuro oriented x3, CN's II-XII intact bilaterally, moves all extremities and no focal motor deficits Psych cooperative and affect normal Assessment & Plan Assessment/Plan (1) Atrial fibrillation with RVR: (2) Syncope: (3) Mitral valve insufficiency: PLAN: * Reviewed echo, EF is normal, mild to moderate MR * Overall HR has improved with increase of BB. Will add diltiazem 120 mg. This will also help with better BP control. after it is safe for him to be anticoagulated would recommend resuming and continue OP plan for DCCV with his primary blueprint processor. * Patient has not had any pauses noted on telemetry, event monitor was ordered for OP f/u. * Patient can follow-up with outside blueprint processor after hospital stay. * This case was reviewed with Dr. Stein, he agrees with plan of care
[2021-09-04] MEDS: 0.9% Saline Lock 10 ML Syringe IV (11:42)
[2021-09-04] MEDS: dilTIAZem CD 120 MG Capsule PO (11:55)
== END 2021-09-04 13:19 | disposition home or self-care (01) | DRG 309 ==
LOC: ED 18:14 → PCU 19:17
PROVIDERS: Emergency Medicine; Internal Medicine Gastroenterology; Nurse Practitioner Family; Admitting Provider Internal Medicine; Emergency Provider Emergency Medicine; PCP Family Medicine; Visit Provider Internal Medicine
PROC: 0DJ08ZZ Inspection of Upper Intestinal Tract, Via Natural or Artificial Opening Endoscopic (ICD-10-PCS; CPT 43235; principal; 2021-09-03 11:25)
DX: I48.20 Chronic atrial fibrillation, unspecified (principal); E87.1 Hypo-osmolality and hyponatremia; E44.0 Moderate protein-calorie malnutrition; I31.3 Pericardial effusion (noninflammatory); G93.89 Other specified disorders of brain; E11.43 Type 2 diabetes mellitus with diabetic autonomic (poly)neuropathy; D18.00 Hemangioma unspecified site; S01.81XA Laceration without foreign body of other part of head, initial encounter; R11.2 Nausea with vomiting, unspecified; K31.84 Gastroparesis; I34.0 Nonrheumatic mitral (valve) insufficiency; E86.0 Dehydration; R42 Dizziness and giddiness; Z79.82 Long term (current) use of aspirin; R50.9 Fever, unspecified; K21.00 Gastro-esophageal reflux disease with esophagitis, without bleeding; Z79.01 Long term (current) use of anticoagulants; Z85.46 Personal history of malignant neoplasm of prostate
CPT/HCPCS: 36415; 70450; 70553; 71045; 71275; 74176; 78264; 80048; 80053; 81001; 82962; 83036; 83930; 83935; 84300; 84443; 84484; 85025; 87040; 88305; 88313; 88342; 93005; 93306; 99285; A9541; A9575; J7030; J7120; Q9967; A4216; J2405

== ENCOUNTER → 2021-09-04 | Outpatient (CLI) | payer OTHER, SELFPAY | END | disposition home or self-care (01) | LOC: CVS 11:55 | PROVIDERS: PCP Family Medicine; Referring Provider Internal Medicine; Visit Provider Internal Medicine | DX: R55 Syncope and collapse (principal); R42 Dizziness and giddiness | CPT/HCPCS: 93225; 93226 ==

== ENCOUNTER → 2021-12-30 | Outpatient (CLI) | payer MEDICARE, OTHER, SELFPAY ==
--- NOTE | 2021-12-30 11:55 | EKG12_ITS ---
Test Reason : AFIB,MED EVAL Blood Pressure : / mmHG Vent. Rate : 063 BPM Atrial Rate : 063 BPM P-R Int : 178 ms QRS Dur : 096 ms QT Int : 422 ms P-R-T Axes : 062 057 072 degrees QTc Int : 431 ms Normal sinus rhythm Nonspecific T wave abnormality Abnormal ECG Confirmed by FARSHAD VELOZ, MERE ([id number]), editor producer JM REYES ([id number]) on 12/31/2021 2:24:42 PM Referred By: SEVERIANO CONNOR Confirmed By:RUTHIE YEN MD
== END | disposition home or self-care (01) ==
LOC: PSN 11:52
PROVIDERS: PCP Family Medicine
DX: Z51.81 Encounter for therapeutic drug level monitoring (principal); I48.19 Other persistent atrial fibrillation; Z79.899 Other long term (current) drug therapy
CPT/HCPCS: 93005